=== PATIENT | female | born 1935 | race African-American/Black ===

== ENCOUNTER 2017-06-14 13:14 | Outpatient (CLI) | payer MEDICARE ==
--- NOTE | 2017-06-14 17:08 | CT ---
CT LUMBAR SPINE WITHOUT IV CONTRAST 06/14/17 HISTORY: Lumbar radiculopathy. Patient complains of thigh pain greater on the right with associated low back p ain. TECHNIQUE: Contiguous axial CT images are obtained through the lumbar spine from the T12-L1 level to the upper s acrum. Sagittal and coronal reformat images are provided. COMPARISON: None available. FINDINGS: Dense vascular calcifications are seen in the abdominal aorta and involving the iliac arteries. Stents are seen within the bilateral common iliac arteries. There are hypodense lesions seen in the k idneys bilaterally which were also seen on a prior CTA exam of the abdomen on 12/12/16 and most likely related to cysts with a few subcentimeter too small to characterize hypodense lesions in each kidney . [employer] images demonstrate a dual lead left subclavian cardiac pacemaking device in place with what esther ears to be osteonecrosis involving the bilateral femoral heads. No fracture is seen involving the lum bar spine and the vertebral body heights are within normal limits. There is slight grade I anterolist hesis of L4 on L5. L1-2 level: There is mild broad based disc osteophyte complex resulting in slight effacement of the t hecal sac anteriorly. Neural foramina appear patent. L2-3 level: There is minimal vacuum phenomenon centered in intervertebral disc with loss of intervert ebral disc height. There is a broad based disc osteophyte complex with facet hypertrophic changes and ligamentous thickening. There is moderate to severe narrowing of the central spinal canal with moder ate bilateral neural foraminal narrowing, greater on the right. L3-4 level: There is severe loss of intervertebral disc height with vacuum phenomenon centered in int ervertebral disc. Prominent end plate degenerative changes are present at this level. There is a broa d based disc osteophyte complex. Facet hypertrophic changes and ligamentous thickening are present. T he findings result in severe narrowing of the central spinal canal as well as narrowing of the latera l recesses. There is severe right and moderate to severe left sided neural foraminal narrowing. L4-5 level: As noted above, there is grade I anterolisthesis of L4 on L5. There is vacuum phenomenon in the intervertebral disc with loss of intervertebral disc height. Mild end plate degenerative hope es are present. There is broad based disc osteophyte complex. Facet hypertrophic changes with ligamen tous thickening are present. The findings result in severe narrowing of the central canal with narrow ing of the lateral recesses. There is severe bilateral neural foraminal narrowing, much greater on th e right with disc material extending into the inferior aspect of the right neural foramen. L5-S1 level: There is a broad based disc osteophyte complex. This does encroach on the exiting bilate ral traversing S1 nerve roots as the nerve roots exit the thecal sac. There are mild facet degenerati ve changes present. There is mild right and mild to moderate left sided neural foraminal narrowing. IMPRESSION: 1. Multilevel degenerative changes with varying degrees of moderate and severe degrees of neural foraminal narrowing as well as severe narrowing of the central spinal canal at the L3-4 level. 2. Grade I anterolisthesis of L4 on L5 related to prominent facet degenerative changes. 3. Dense vascular calcifications. 4. Bilateral renal lesions, likely related to cysts. POS: [facility]
== END 2017-06-14 13:15 | disposition home or self-care (01) ==
LOC: CT 13:14
PROVIDERS: ATTEND Nurse Practitioner Family
DX: M51.16 Intervertebral disc disorders with radiculopathy, lumbar region (principal); M47.26 Other spondylosis with radiculopathy, lumbar region; M43.16 Spondylolisthesis, lumbar region; N28.9 Disorder of kidney and ureter, unspecified; I70.90 Unspecified atherosclerosis
CPT/HCPCS: 72131

== ENCOUNTER 2017-08-02 08:00 | Day surgery (SDC) | payer MEDICARE ==
[2017-08-01 11:10] VITALS: BMI 21.4
[~2017-08-02 08:00] MED LIST: FLU VACC TS2017-18 (>65YR) 0.5 ML SYRINGE IM ONE
[2017-08-02 09:38] VITALS: BP 146/60; TEMP 97.2
--- NOTE | 2017-08-02 10:29 | RAD ---
LUMBAR SPINE TWO VIEWS: History: Back pain. Comparison: 01-21-17 FINDINGS: Lateral flexion and extension views are included. Vertebral body heights are maintained. Disc space n arrowing is most pronounced at the L2-3 and L3-4 levels. Discogenic endplate changes and osteophytosi s are most pronounced at the L3-4 level. On the neutral view, there is 4 mm spondylolisthesis at the L3-4 level and 5 mm spondylolisthesis at the L4-5 level. No abnormal translational motion is evident upon flexion or extension. Calcification is present within the arterial structures with stents overlying the common iliac arteri es. IMPRESSION: 1. Prominent lumbar spondylosis. 2. Atherosclerosis. POS: [facility]
--- NOTE | 2017-08-02 11:35 | RAD ---
LUMBAR SPINE MYELOGRAM INDICATION: Lumbar radiculopathy. PROCEDURE: After informed consent had been obtained, the patient was escorted to the interventional suite and pl aced on the procedural table. Nurse Aide imaging was performed. The patient was placed into a prone posi tion. Skin on the low back was then prepped and draped in the standard sterile fashion and topical a nd regional soft tissue anesthesia was achieved with 1% lidocaine and sodium bicarbonate. L3 right interlaminar approach was selected, and a 22 gauge needle was uneventfully advanced into the thecal s ac with clear color CSF. Subsequently, 8 cc Isovue M200 was instilled into the thecal sac under real time fluoroscopy. Appropriate opacification of thecal sac demonstrated with imaging stored for [facility] irwition. The needle was then removed from the patient. The patient tolerated the procedure well an d was then transferred to CT to undergo subsequent myelogram. Reference separate report for full det ails. Radiation Exposure Data: Intermittent fluoroscopy: less than 10 seconds. IMPRESSION: Technically successful lumbar myelogram as detailed above. POS: [facility]
[2017-08-02] MEDS ORDERED: Iopamidol-M 200 41% 20 ML VIAL ONE (16:53)
--- NOTE | 2017-08-05 07:22 | CT ---
LUMBAR SPINE MYELOGRAM: CT LUMBAR SPINE WITH CONTRAST: CLINICAL HISTORY: Spinal stenosis of the lumbar region. Lumbar radiculopathy. COMPARISON: Reference made to 06/14/2017 exam. FINDINGS: Redemonstration of prominent endplate degenerative change with associated osteophytosis, disk space n arrowing, gas vacuum phenomenon, and prominent endplate sclerosis of L3-L4, similar in appearance to prior exam. There is no compression deformity. Trace L4-L5 level spondylolisthesis is stable. Ther e is minimal retrolisthesis of L2 on L3. There is multilevel mild to moderate bilateral facet degene rative hypertrophy throughout the lumbar spine. Multilevel gas vacuum phenomenon is present. The co nus medullaris is normal in morphology and terminates at the L1 level. L5-S1: There is no high grade central canal stenosis. Mild bilateral neural foraminal stenosis is p resent, as a result of broad-based disk bulge and facet hypertrophy. L4-L5: Moderate central canal stenosis due to a broad-based disk osteophyte complex. There is sever e right and moderate left neural foraminal stenosis. L3-L4: Moderate central canal stenosis as a result of a broad-based disk osteophyte. there is moder ate right and moderate to severe left neural foraminal stenosis, as the result of a left asymmetric b road-based disk osteophyte complex. L2-L3: There is moderate central canal stenosis, as the result of a broad-based disk osteophyte with moderate left and mild to moderate right neural foraminal narrowing. L1-L2: Mild narrowing of the central canal due to a broad-based disk bulge. There is mild narrowing of the left neural foramen. No high grade right foraminal stenosis. Extensive vascular disease is present. There is redemonstration of a left renal cyst. Multiple gran ulomatous calcifications of the spleen are present. Small right renal hypodensity is predominantly o bscured by motion. IMPRESSION: Prominent multilevel degenerative change throughout the lumbar spine, as delineated above, with resul tant moderate to severe areas of multilevel central canal and foraminal compromise, as discussed abov e. POS: [facility]
== END 2017-08-02 11:55 | disposition home or self-care (01) ==
LOC: RAD 08:00
PROVIDERS: ATTEND Neurological Surgery
PROC: B00B1ZZ Plain Radiography of Spinal Cord using Low Osmolar Contrast (ICD-10-PCS; principal; 2017-08-02)
DX: M48.062 Spinal stenosis, lumbar region with neurogenic claudication (principal); I10 Essential (primary) hypertension; E78.5 Hyperlipidemia, unspecified; E11.51 Type 2 diabetes mellitus with diabetic peripheral angiopathy without gangrene; Z79.84 Long term (current) use of oral hypoglycemic drugs; Z79.82 Long term (current) use of aspirin; Z79.899 Other long term (current) drug therapy; Z88.6 Allergy status to analgesic agent; Z88.5 Allergy status to narcotic agent; Z88.8 Allergy status to other drugs, medicaments and biological substances; Z98.42 Cataract extraction status, left eye; Z98.41 Cataract extraction status, right eye; Z95.0 Presence of cardiac pacemaker; Z95.1 Presence of aortocoronary bypass graft; Z90.710 Acquired absence of both cervix and uterus; Z90.49 Acquired absence of other specified parts of digestive tract; Z90.79 Acquired absence of other genital organ(s); Z90.722 Acquired absence of ovaries, bilateral; Z98.890 Other specified postprocedural states
CPT/HCPCS: 62304; 72100; 72132

== ENCOUNTER 2017-08-09 08:35 | Outpatient (CLI) | payer MEDICARE ==
--- NOTE | 2017-08-09 10:34 | CT ---
CT OF THE ABDOMEN AND PELVIS WITH IV CONTRAST: INDICATIONS: An 82-year-old female with black stools and anemia with a change in bowel habits. The patient has a history of a hysterectomy, an appendectomy, and left leg endovascular stent placement. COMPARISON: CT of the abdomen and pelvis with bilateral lower extremity run-off dated 12/12/2016. FINDINGS: ABDOMEN: There is emphysematous change overlying both lung bases. There is subsegmental volume loss within the right middle lobe and both lower lobes. There are calcified lymph nodes within the right infrahilar region. There is a small hiatal hernia. There are numerous granuloma within the spleen. There are areas of focal fatty infiltration seen adjacent to the falciform ligament that is stable to the prior exam. The pancreas and adrenal glands are normal appearing. Bilateral renal cysts are stable. The largest cyst, seen within the posterior right mid kidney, measures 2 cm. The largest in the left kidney selene sures 2.9 cm and is stable to the prior exam. No hydronephrosis is grossly evident. No enlarged lym ph node or free fluid is evident. PELVIS: The appendix is surgically absent. The uterus is surgically absent. The bladder is within normal limits. The colon is not fully distended. No definite apparent wall thickening or pericoloni c inflammatory stranding is evident. The small bowel is of normal caliber. No free fluid is evident . There is an endovascular stent present within the left common iliac artery. This is stable to the prior CTA evaluation of the abdomen and pelvis with bilateral lower extremity run-off. There is bilateral osteonecrosis of the femoral head, which is stable to the prior exam. A small are a of subchondral collapse involving the superior aspect of the right femoral head is stable. Degener ative levoscoliosis is again seen involving the lumbar spine. There is scattered degenerative and os teoarthritic change. IMPRESSION: 1. No acute CT abnormality seen within the abdomen or pelvis. 2. Small hiatal hernia. 3. Focal fatty infiltration of the falciform ligament is stable to the prior exam. 4. Findings of prior granulomatous disease. 5. Stable bilateral renal cysts. 6. Stable osteonecrosis of both femoral heads. POS: [facility]
[2017-08-09] MEDS ORDERED: Iopamidol 370 76% 100 ML VIAL ONE (14:11)
== END 2017-08-09 08:36 | disposition home or self-care (01) ==
LOC: CT 08:35
PROVIDERS: ATTEND Internal Medicine Gastroenterology
DX: R19.4 Change in bowel habit (principal); R93.8 Abnormal findings on diagnostic imaging of other specified body structures; D64.9 Anemia, unspecified; K44.9 Diaphragmatic hernia without obstruction or gangrene; K76.0 Fatty (change of) liver, not elsewhere classified; N28.1 Cyst of kidney, acquired; M87.852 Other osteonecrosis, left femur; M87.851 Other osteonecrosis, right femur; D71 Functional disorders of polymorphonuclear neutrophils
CPT/HCPCS: 74177

== ENCOUNTER 2017-09-24 13:08 | Outpatient (CLI) | payer MEDICARE ==
--- NOTE | 2017-09-24 13:31 | RAD ---
PA AND LATERAL CHEST: History: High blood sugar. Fall. Headache. Chest pain. FINDINGS/IMPRESSION: Comparison is made with exam of 03-21-17. The heart size is prominent. The aorta is tortuous. Left sided pacing device remains in place. Lungs are well expanded. There is mild prominence of the pulmonary vascularity. No lobar consolidation, pne umothoraces or pleural effusions are seen. There is scoliosis of the spine. POS: [facility]
== END 2017-09-24 13:09 | disposition home or self-care (01) ==
LOC: RAD-FRANK 13:08
PROVIDERS: ATTEND Nurse Practitioner Family
DX: Z01.818 Encounter for other preprocedural examination (principal); I25.5 Ischemic cardiomyopathy; Z95.810 Presence of automatic (implantable) cardiac defibrillator; M41.9 Scoliosis, unspecified
CPT/HCPCS: 71046

== ENCOUNTER 2018-01-20 11:15 | Inpatient (IN) | payer MEDICARE ==
--- NOTE | 2018-01-23 14:43 | HP ---
CHIEF COMPLAINT: Lumbar and leg pain. HISTORY OF PRESENT ILLNESS: Ms. Gonzalez is an 83-year-old female who presents with low back pain and pain in the right greater than left thigh. She has symptoms of neurogenic claudication and can only walk about 100 feet before having to sit down. She is standing and walking makes the pain worse in the legs. She has had several injections in the lumbar spine including the left lumbar TFESI and an THADDEUS, which did not seem to help much. The pain is made some better with analgesics. She has not had any physical therapy for the low back. She has an extensive heart history including open heart surgery and several stents placed. She also has a pacemaker. The patient continues to be limited by her leg pain that worsens with standing and causes her to lean forward onto shopping cart or over the counters. REVIEW OF SYSTEMS: A 10-point review of systems has been addressed and negative except for what is in HPI above. PAST MEDICAL HISTORY: Venous thrombosis embolism, hypertension, osteopenia, postmenopausal, de Quervain's tenosynovitis, peripheral vascular disease, hyperlipidemia, diabetes type 2, tobacco use, hemorrhoids, diabetic kidney disease stage 3, CABG, AICD, coronary artery calcification, cardiomyopathy, interventional cardiac history including iliofemoral angiography with right common femoral endarterectomy in 2009, pacemaker placement in 2007, stents in iliac artery, cataract surgery, right carotid endarterectomy, cardiomyopathy with ejection fraction of 40%-45% in 2011, which improved to 50%-55% after CABG. PAST SURGICAL HISTORY: Appendectomy, hysterectomy, colonoscopy, neck surgery, heart surgery, hemorrhoidectomy, left carotid surgery in 05/26, pacemaker in 2007, CABG by Dr. Ivey, left common femoral endarterectomy in 2016. FAMILY HISTORY: Father is at 80 from cancer. Mother is from a heart attack in her late 70s. Siblings, there were three sisters who have already. Patient has 1 healthy daughter. SOCIAL HISTORY: The patient quit drinking alcohol 15 years ago. MEDICATIONS: Colace, Align, allopurinol, ferrous sulfate, CoQ10, fish oil, aspirin, hydralazine, carvedilol, furosemide, benazepril, Zoloft, duloxetine, metformin. ALLERGIES: MOTRIN. PHYSICAL EXAMINATION: HEENT: Normocephalic, atraumatic. Hearing is intact. Vision is intact. Moist mucous membranes. Trachea is midline. No masses are noted. Eyes: Pupils are equal, round, and reactive to light. Extraocular movements are intact. Sclerae is not injected, nonicteric. PSYCHIATRIC: Normal mood and affect. PULMONARY: Normal work of breathing on room air. CARDIOVASCULAR: No cyanosis or clubbing. Regular rate and rhythm. MUSCULOSKELETAL: Lower extremities, there is normal strength in the iliopsoas, quadriceps, hamstrings, anterior tibialis, extensor hallucis longus, gastroc and toe flexor. Sensory exam, some mild length dependent loss of foot sensation , tender to palpation on the midline lumbar spine. NEUROLOGIC: The patient is awake, alert, oriented to person, place and thing. Cranial nerves II through XII are grossly intact. Speech is fluent. Answers questions appropriately. Walks with a cane. Analgesic gait and station. ASSESSMENT: Spondylolisthesis in the lumbar region, stenosis lumbar with neurogenic claudication. PLAN: Dr. Triana has offered surgery, lumbar laminectomy L2-L5 with TLIF at L3-L4 and L4-L5. We have discussed the indications, risks, benefits, alternatives, and expected results from surgery. The risks are discussed and included, but were not limited to bleeding, infection, CSF leak, nerve damage, weakness, incontinence of cauda equina injury, arachnoiditis, paralysis, ventilator dependence, wheelchair dependence, loss of vision, hardware malplacement, cardiopulmonary complications of anesthesia and . The long- term complications discussed and include but are not limited to of surrounding disks and need for future surgery. The patient states she understands the risks and is willing to proceed. KRISTEN
[2018-01-24] MEDS ORDERED: Thrombin 5000 UNITS/5 ML VIAL ONE ×2 (06:17→11:54)
[2018-01-24] MEDS ORDERED: Sodium Chloride 0.9% 20 ML ONE (06:17)
[2018-01-24] MEDS ORDERED: Bupivacaine HCl 0.5%/Epinephrine 1:200,000/PF 30 ml Vial ONE (06:17)
[2018-01-24] MEDS ORDERED: CEFAZOLIN/Water 2 GM/20 ML SYRINGE ONE (06:43)
[2018-01-24] MEDS ORDERED: Albumin 5% 500 ML ONE (06:51)
[2018-01-24] MEDS ORDERED: Phenylephrine HCL 10 MG/ML VIAL ONE (06:51)
[2018-01-24] MEDS ORDERED: Fentanyl 100 MCG/2 ML VIAL ONE ×6 (07:08→18:35)
[2018-01-24] MEDS ORDERED: PHENYLEPHRINE-NS 100 MCG/ML 10 ML SYRINGE ONE ×2 (07:35→13:49)
[2018-01-24] MEDS ORDERED: Nitroglycerin 2% Ointment 1 INCH/1 GM Packet ONE (10:14)
[2018-01-24] MEDS ORDERED: PROPOFOL 200 MG/20 ML VIAL ONE (13:49)
[2018-01-24] MEDS ORDERED: Lidocaine 1% PF 5 ML VIAL ONE (13:49)
[2018-01-24] MEDS ORDERED: diphenhydrAMINE 50 MG/ML VIAL IVP PRN (15:25)
[2018-01-24] MEDS ORDERED: Promethazine HCl 25 MG/ML VIAL IM PRN ×2 (15:25→18:41)
[2018-01-24] MEDS ORDERED: Bisacodyl 10 MG SUPP PR PRN (15:25)
[2018-01-24] MEDS ORDERED: Acetaminophen/Codeine 30-300mg Tablet PO PRN (15:25)
[2018-01-24] MEDS ORDERED: Mag-Al 1200 mg/1200 mg/30 ML UDCUP PO PRN (15:25)
[2018-01-24] MEDS ORDERED: Promethazine 25 MG TAB PO PRN (15:25)
[2018-01-24] MEDS ORDERED: Labetalol HCl 100 MG/20 ML VIAL ONE (15:30)
[2018-01-24 16:02] LABS: Actual Bicarbonate (HCO3a) 24.9 mEq/L (22-28); O2 Tension (PaO2) 95.1 mmHg (> 60.0); pH, Arterial 7.29 (7.35-7.45)
[2018-01-24 16:03] LABS: Analyzer IN Cardio OR; Calcium, Ionized 1.2 mmol/L (1.12-1.30); Hemoglobin (Hb) 9.8 g/dL (12.0-16.0); Puncture Site A-LINE
[2018-01-24] MEDS ORDERED: hydrALAZINE 20 MG/ML VIAL ONE (16:10)
[2018-01-24] MEDS: Sodium Chloride 0.9% 1,000 ML IV SCH (17:28)
[2018-01-24 17:48] LABS: CO2 Tension 41.6 mmHg (35.0-45.0); pH, Arterial 7.35 (7.35-7.45)
[2018-01-24 17:49] LABS: Actual Bicarbonate (HCO3a) 22.6 mEq/L (22-28); Base Excess (BEa) -2.8 mEq/L (-2.0 to +3.0); Hemoglobin (Hb) 11.2 g/dL (12.0-16.0); O2 Tension (PaO2) 57.1 mmHg (> 60.0)
[2018-01-24 17:50] LABS: Analyzer IN Cardio OR; Calcium, Ionized 1.1 mmol/L (1.12-1.30); Puncture Site A-LINE
[2018-01-24] MEDS ORDERED: Ondansetron HCl/PF 4 MG/2 ML Vial IVP PRN (18:41)
[2018-01-24] MEDS ORDERED: Promethazine HCl 25 MG/ML VIAL SLOW IVP PRN (18:41)
[2018-01-24] MEDS: tiZANidine HCl 4 MG TAB PO PRN (20:49)
[2018-01-24] MEDS: Carvedilol 25 MG TAB PO SCH (20:49)
[2018-01-24] MEDS: Gabapentin 300 MG CAP PO SCH (20:49)
[2018-01-24] MEDS: hydrALAZINE 25 MG TAB PO SCH (20:49)
[2018-01-24] MEDS: metFORMIN 500 MG TAB PO SCH (20:51)
[2018-01-24] MEDS: Atorvastatin Calcium 20 MG TAB PO SCH (20:51)
[2018-01-24] MEDS: DULoxetine 30 MG CAP PO SCH (20:51)
--- NOTE | 2018-01-24 21:02 | OP ---
DATE OF SURGERY: 01/24/2018 SURGEON: Wellington Triana M.D. [employer] INSPECTOR: Abby Sullivan PA-C. PREOPERATIVE INDICATION: Treat pain, prevent neurological deterioration. PREOPERATIVE DIAGNOSES: Multilevel lumbar stenosis, unstable lumbar spondylolisthesis x2 levels. POSTOPERATIVE DIAGNOSIS: Multilevel lumbar stenosis, unstable lumbar spondylolisthesis x2 levels. OPERATIVE PROCEDURES: Decompressive laminectomy, medial facetectomy, foraminotomy L2-L3, L3-L4, L4-L 5, transforaminal lumbar interbody arthrodesis L3-L4, L4-L5, placement of intervertebral biomechanica l device L3-L4, L4-L5, local morselized autograft and morselized Allograft, pedicle screw and laure ins trumentation L3-L4 and L4-L5, posterolateral arthrodesis L3-L4, L4-L5, operating microscope. PREOPERATIVE MEDICATION: Ancef 2 g IV. DRAIN NUMBER: Zero. DRAIN TYPE: None. OPERATIVE DICTATION: The patient was brought to the operating room. General endotracheal anesthesia was induced. The patient was positioned prone on the Santhosh frame with the appropriate padding for the chest and hips. A lateral fluoro radiograph was used to plan our incision. The lumbar skin was sterilely prepped and draped. We opened with a 10 blade knife and controlled bleeding with bipolar and monopolar cautery. We used monopolar cautery to dissect through subcutaneous tissues to the thor acodorsal fascia. We incised the fascia in the midline and we reflected the paraspinal muscles off t he spinous process and lamina of L2, L3, L4, and L5. Self-retaining retractors were placed and a lat eral fluoro radiograph was used to confirm the levels upon which we were operating. We then carried our dissection over the facet joints to expose the transverse process of L3, L4, and L5. We used an Adson rongeur, we removed the spinous processes from L2 to the superior portion of L5. We fashioned laminectomy down the midline. We widened the laminectomy defect with Kerrison rongeurs, we performed medial facetectomies and foraminotomies over the exiting nerve roots at L2-L3, L3-L4, and L4-L5 and removed the superior half of L5 lamina and perform foraminotomies of the L5 nerve root. During our d ecompression at the L3 level, there is a tiny durotomy in the midline posteriorly under a bone spur a nd another small one laterally. The operative microscope was brought in the field. Under microscopic magnification and using microsurgical techniques, we closed the dura in a primary f ashion. Over both openings we sewed down a pledget of muscle to buttress closure. With our decompre ssion secure and the dura reclosed and the dura tightly closed, we turned our attention to arthrodesi s. The right-sided L3-L4 and L4-L5 facet joints were removed. We accessed the intervertebral space thro ugh the foramen at L3-L4 and L4-L5, incised the disk space and removed disk contents using curettes a nd rongeurs. Angled curets were used to scrape the endplates. We used a rectangular shaped bone andres p to prepare the endplates for grafting and to measure the height of the interspace. Both interspace s measured 9 mm. A 9 mm PEEK intervertebral graft was brought in the field. Laminectomy bone was ca refully morcellized on the back table and the morselized bone was added to demineralized bone matrix as our fusion substrate. This was done after all soft tissue was removed from it. The fusion substr ate was packed into the PEEK graft and the grafts were advanced into the respective interspaces under radiographic guidance to the appropriate depth. We turned our attention to pedicle screw instrument ation. Using bony anatomic landmarks, palpation of the medial portion of the pedicles, and a lateral fluoro radiograph as a guide, we chose entry points for the pedicle screws at L3, L4, and L5. We drilled ou r entry points and used a bone awl to create our trajectories. We tapped the trajectories and probed them. We found each completely encased the bone. We placed 6.5 mm diameter screws through the pedi cles at L3, L4 and L5 into the vertebral bodies. A 360-degree image set was generated with our isoce ntric C-arm confirming an adequate positioning of our pedicle screw instrumentation. We irrigated co piously with bacitracin irrigation. We decorticated the transverse processes of L3, L4, and L5 bilat erally and over this decorticated bone, we left demineralized bone matrix and morselized autograft as our posterolateral fusion substrate. We then brought rods into the heads of the screws, we used gen tle compression across each of the interspaces to keep our interbody grafts in place. We tightened c aps down over the rods and using a [id number] mechanism, we ensured adequate tightness. W chi reinspected our dural closure, 1 more marker suture was placed on the microscope and there was exce llent control of CSF egress. We irrigated copiously with bacitracin irrigation. We reinforced our d ural closure with DuraSeal tissue sealant and we treated the wound with vancomycin powder. We closed the wound in anatomic layers and we applied a sterile dressing. This was a clean case and no contam ination.
[2018-01-25] MEDS: Acetaminophen/Codeine 30-300mg Tablet PO PRN ×3 (02:10→14:27)
[2018-01-25] MEDS: Sodium Chloride 0.9% 1,000 ML IV SCH ×2 (04:38→17:26)
[2018-01-25] MEDS: hydrALAZINE 25 MG TAB PO SCH ×3 (08:58→21:38)
[2018-01-25] MEDS: Carvedilol 25 MG TAB PO SCH ×2 (08:59→21:38)
[2018-01-25] MEDS ORDERED: Bifidobacterium Infantis [Align] 4 MG PO SCH (09:00)
[2018-01-25] MEDS: Allopurinol 300 MG TAB PO SCH (09:01)
[2018-01-25] MEDS: DULoxetine 30 MG CAP PO SCH ×2 (09:02→21:38)
[2018-01-25] MEDS: Cyanocobalamin (Vitamin B-12) 1,000 MCG TAB PO SCH (09:02)
[2018-01-25] MEDS: Ferrous Sulfate 325 MG TAB PO SCH (09:02)
[2018-01-25] MEDS: Fish Oil 1,000 MG CAP PO SCH ×2 (09:02→21:38)
[2018-01-25] MEDS: Folic Acid 1 MG TAB PO SCH (09:02)
[2018-01-25] MEDS: metFORMIN 500 MG TAB PO SCH ×2 (09:02→21:39)
[2018-01-25] MEDS: Furosemide 20 MG TAB PO SCH (09:02)
[2018-01-25] MEDS: Loratadine 10 MG TAB PO SCH (09:02)
[2018-01-25] MEDS: Ubidecarenone 50 MG CAP PO SCH (09:03)
--- NOTE | 2018-01-25 10:51 | PRG ---
DATE OF SERVICE: 01/25/2018 Ms. Gonzalez is now postop day 1 following multilevel TLIF with Dr. Triana yesterday. She had 2 incid ental durotomies that were repaired, and for that purpose, she was kept flat overnight. She, at this point, is able to tolerate sitting upright, although has discomfort in her back. Until this point, she has refused pain medications, and unfortunately, lost IV access and has refused for placement of said IV. Discussed this with her this morning and she still would not like to pursue that. She does have a Husain in and we will go ahead and remove that it has caused her great discomfort. She has so me complaints stating that we do not want her to eat, although she is free to eat any diet that she c hooses and discussed this with her at bedside. Also, helped to get breakfast ordered for the morning . Her incision sites are well approximated. No drainage or dehiscence. She does have significant b ack and hip pain, which one would expect with her specific surgery, and particularly that she has ref used pain medications to date. We will re-discuss this with her, and nurse will bring pain medicatio n for her after our discussion. She will need to ambulate today out of the bed, preferably 3 times a day. I will make sure that this is in her orders. She is pending rehab evaluation and likely will go next week sometime.
[2018-01-25] MEDS: Gabapentin 300 MG CAP PO SCH (21:38)
[2018-01-25] MEDS: Atorvastatin Calcium 20 MG TAB PO SCH (21:38)
[2018-01-26] MEDS: tiZANidine HCl 4 MG TAB PO PRN (04:49)
[2018-01-26] MEDS: Acetaminophen 325 MG TAB PO PRN (09:38)
[2018-01-26] MEDS: Allopurinol 300 MG TAB PO SCH (09:39)
[2018-01-26] MEDS: Ubidecarenone 50 MG CAP PO SCH (09:39)
[2018-01-26] MEDS: metFORMIN 500 MG TAB PO SCH ×2 (09:40→21:50)
[2018-01-26] MEDS: Loratadine 10 MG TAB PO SCH (09:45)
[2018-01-26] MEDS: DULoxetine 30 MG CAP PO SCH ×2 (09:46→21:50)
[2018-01-26] MEDS: Folic Acid 1 MG TAB PO SCH (09:46)
[2018-01-26] MEDS: Fish Oil 1,000 MG CAP PO SCH ×2 (09:46→21:50)
[2018-01-26] MEDS: Ferrous Sulfate 325 MG TAB PO SCH (09:46)
[2018-01-26] MEDS: Cyanocobalamin (Vitamin B-12) 1,000 MCG TAB PO SCH (09:46)
[2018-01-26 10:57] LABS: #Eosinphils 0.1 thou/uL (0.0-0.7); #Lymphocytes 2.2 thou/uL (1.20-3.40); #Monocytes 0.9 thou/uL (0.11-0.59); #Neutrophils 10.9 thou/uL (1.40-6.50); %Basophils 0.3 % (0.0-1.0); %Eosinophils 0.5 % (0.0-10.0); %Lymphocytes 15.5 % (21.0-51.0); %Monocytes 6.6 % (0.0-10.0); %Neutrophils 77.1 % (42.0-75.0); Hemoglobin 8.9 g/dL (12.0-16.0); Mean Corpuscular HGB CONC 34.2 g/dL (32.0-36.0); Mean Corpuscular Hemoglobin 32.9 pg (27.0-31.0); Mean Corpuscular Volume 96.1 fL (78.0-98.0); Mean Platelet Volume 8.9 fL (7.4-10.4); PLT Morphology Comment Appears Decreased; Platelet Count 75 thou/uL (130-400); RBC Distribution Width 14.9 % (11.5-14.5); Red Blood Cell (RBC) Count 2.71 mill/uL (4.20-5.40); White Blood Cell (WBC) Count 14.2 thou/uL (4.8-10.8)
[2018-01-26 11:02] LABS: Anion Gap 14 mmol/L (10-20); BUN (Urea Nitrogen) 16 mg/dL (9.8-20.1); Calc. Creatinine Clearance 35 mL/min (70-130); Calcium 8.6 mg/dL (7.8-10.44); Carbon Dioxide 21 mmol/L (23-31); Chloride 104 mmol/L (98-107); Estimated GFR-MDRD 63; Glucose 204 mg/dL (83-110); Potassium 3.6 mmol/L (3.5-5.1); Sodium 135 mmol/L (136-145)
--- NOTE | 2018-01-26 11:17 | PRG ---
DATE OF SERVICE: 01/26/2018 SUBJECTIVE: Ms. Gonzalez is 2 days status post revision lumbar surgery with posterolateral instrumented fusion and TLIF. She has been slowly mobilizing and continues to report the expected postoperative s urgical pain. We will continue to have her work with physical therapy and occupational therapy. We will work towards disposition to rehabilitation likely to take place at the beginning part of this ne xt week.
[2018-01-26] MEDS: Sodium Chloride 0.9% 1,000 ML IV SCH (20:19)
[2018-01-26] MEDS: Furosemide 20 MG TAB PO SCH (20:20)
[2018-01-26] MEDS: hydrALAZINE 25 MG TAB PO SCH ×2 (20:20→21:50)
[2018-01-26] MEDS: Carvedilol 25 MG TAB PO SCH ×2 (20:20→21:50)
[2018-01-26] MEDS: Atorvastatin Calcium 20 MG TAB PO SCH (21:49)
[2018-01-26] MEDS: Gabapentin 300 MG CAP PO SCH (21:50)
[2018-01-26] MEDS ORDERED: Dextrose 5% in Water 1,000 ML IV PRN (21:55)
[2018-01-26] MEDS ORDERED: Dextrose 50% Abboject 50 ML SYRINGE IVP PRN (21:55)
[2018-01-27] MEDS: Sodium Chloride 0.9% 1,000 ML IV SCH ×3 (00:09→22:49)
--- NOTE | 2018-01-27 06:52 | PRG ---
DATE OF SERVICE: 01/27/2018 I saw Ms. Riddhi Gonzalez in her hospital room this morning. She is 2 days out from decompression fusion lumbar spine for stenosis and unstable spondylolisthesis. Over the weekend she has done relatively w ell. Her spirits were not great and she did not mobilize as quickly as we would like, but this morni ng she is feeling better. She says she has some soreness around the site of the surgery. She has no radiating nerve pain to her legs or feet. Her vitals show a T-max of 98.7, pulse is a little bit up at 102, however, it has been in the 80s most of the weekend. Blood pressure is 140s to 150s and she is satting 100% this morning, although it has been in the low 90s previously. I do not find any new neurological deficit. The bandage is tinged with some serosanguineous drainage. It is well approxi mated to the skin. We will have Ms. Gonzalez mobilize with physical therapy today. If they feel she is a good candidate for inpatient rehabilitation she can be transferred over. She should wear her brace when she is sitting or standing. We encouraged her to walk and she indicates she will make an effor t to do so today.
[2018-01-27] MEDS: Furosemide 20 MG TAB PO SCH (09:37)
[2018-01-27] MEDS: Loratadine 10 MG TAB PO SCH (09:37)
[2018-01-27] MEDS: Allopurinol 300 MG TAB PO SCH (09:37)
[2018-01-27] MEDS: metFORMIN 500 MG TAB PO SCH ×2 (09:37→22:49)
[2018-01-27] MEDS: Fish Oil 1,000 MG CAP PO SCH ×2 (09:37→22:48)
[2018-01-27] MEDS: Carvedilol 25 MG TAB PO SCH ×2 (09:38→21:36)
[2018-01-27] MEDS: hydrALAZINE 25 MG TAB PO SCH ×3 (09:38→22:48)
[2018-01-27] MEDS: Ubidecarenone 50 MG CAP PO SCH (09:38)
[2018-01-27] MEDS: DULoxetine 30 MG CAP PO SCH ×2 (09:38→21:36)
[2018-01-27] MEDS: Folic Acid 1 MG TAB PO SCH (09:38)
[2018-01-27] MEDS: Ferrous Sulfate 325 MG TAB PO SCH (09:39)
[2018-01-27] MEDS: Cyanocobalamin (Vitamin B-12) 1,000 MCG TAB PO SCH (09:39)
[2018-01-27 14:40] LABS: Bilirubin Negative (Negative); Blood, Urine Trace (Negative); Clarity CLEAR (Clear); Glucose, Urine (Dipstick) Negative (Negative); Leukocyte Small (Negative); Nitrite Negative (Negative); Protein, Urine (Dipstick) 300 mg/dL (Neg-Trace); Specific Gravity, Urine 1.022 (1.002-1.036); Urobilinogen 0.2 mg/dL (0.2-1.0)
[2018-01-27 14:44] LABS: Bacteria/HPF None Seen HPF (None Seen); Hyaline Casts/LPF 0-3 HYALINE CAST LPF (0-3 Hyaline); Pathc Cast-AUWi Flag 1.01 (0-2.49); Squamous Epithelial 0-3 HPF (0-3); WBC/HPF 0-3 HPF (0-3)
[2018-01-27 14:47] LABS: Yeast-AUWi Flag 30.5 (0-25.0)
[2018-01-27 15:03] LABS: RBC/HPF 0-3 HPF (0-3)
[2018-01-27] MEDS: Acetaminophen 325 MG TAB PO PRN (17:45)
[2018-01-27] MEDS: HumaLOG 300 UNITS/3 ML VIAL SC PRN ×2 (18:00→21:47)
[2018-01-27] MEDS: Atorvastatin Calcium 20 MG TAB PO SCH (22:48)
[2018-01-27] MEDS: Gabapentin 300 MG CAP PO SCH (22:48)
[2018-01-28] MEDS: HumaLOG 300 UNITS/3 ML VIAL SC PRN (06:21)
--- NOTE | 2018-01-28 07:16 | PRG ---
DATE OF SERVICE: 01/28/2018 Ms. Gonzalez is 4 days out from lumbar decompression fusion. She is slowly mobilizing with the assistanc e of Physical Therapy. She does not recall when therapy came yesterday, but she does recall them com ing on Saturday. She does say that she got out of bed yesterday and walked with her walker. Incision continues to drain a bit from one end. The drainage is minimal, but it is present. Steri-Strips are saturated. Ms. Gonzalez's vitals have remained stable overnight and [facility] a [facility] for [facility] there. We will continue oral antibio tics for the next 5 days at least due to the incisional drainage.
[2018-01-28] MEDS: Cyanocobalamin (Vitamin B-12) 1,000 MCG TAB PO SCH (09:12)
[2018-01-28] MEDS: Carvedilol 25 MG TAB PO SCH ×2 (09:12→21:10)
[2018-01-28] MEDS: Allopurinol 300 MG TAB PO SCH (09:12)
[2018-01-28] MEDS: Folic Acid 1 MG TAB PO SCH (09:13)
[2018-01-28] MEDS: hydrALAZINE 25 MG TAB PO SCH ×3 (09:13→21:10)
[2018-01-28] MEDS: Fish Oil 1,000 MG CAP PO SCH ×2 (09:13→21:08)
[2018-01-28] MEDS: DULoxetine 30 MG CAP PO SCH ×2 (09:13→21:08)
[2018-01-28] MEDS: Ferrous Sulfate 325 MG TAB PO SCH (09:13)
[2018-01-28] MEDS: Furosemide 20 MG TAB PO SCH (09:13)
[2018-01-28] MEDS: metFORMIN 500 MG TAB PO SCH ×2 (09:14→21:08)
[2018-01-28] MEDS: Loratadine 10 MG TAB PO SCH (09:14)
[2018-01-28] MEDS: Ubidecarenone 50 MG CAP PO SCH (09:14)
[2018-01-28] MEDS: Sodium Chloride 0.9% 1,000 ML IV SCH (14:02)
[2018-01-28] MEDS: tiZANidine HCl 4 MG TAB PO PRN (16:56)
[2018-01-28] MEDS: Atorvastatin Calcium 20 MG TAB PO SCH (21:08)
[2018-01-28] MEDS: Gabapentin 300 MG CAP PO SCH (21:08)
[2018-01-29] MEDS: Sodium Chloride 0.9% 1,000 ML IV SCH ×2 (05:29→16:30)
--- NOTE | 2018-01-29 07:28 | PRG ---
DATE OF SERVICE: 01/29/2018 I saw Ms. Gonzalez this morning in her hospital room. She is still awaiting placement in inpatient rehab ilitation. I do not find any neurological deficits. There is a tiny bit of drainage for the most sánchez perior portion of the incision, but otherwise it is a clean and dry. As long as she is able to use a bedside commode and not soiling herself, we can address just the draining area and leave the rest op en to air. We will continue Levaquin for now. Another 4 days at least will be used. Once there is a bed open in inpatient rehabilitation she will be transferred.
[2018-01-29] MEDS: Ubidecarenone 50 MG CAP PO SCH (08:44)
[2018-01-29] MEDS: hydrALAZINE 25 MG TAB PO SCH ×3 (08:44→20:21)
[2018-01-29] MEDS: Allopurinol 300 MG TAB PO SCH (08:44)
[2018-01-29] MEDS: Ferrous Sulfate 325 MG TAB PO SCH (08:45)
[2018-01-29] MEDS: DULoxetine 30 MG CAP PO SCH ×2 (08:45→20:18)
[2018-01-29] MEDS: metFORMIN 500 MG TAB PO SCH ×2 (08:45→20:19)
[2018-01-29] MEDS: Fish Oil 1,000 MG CAP PO SCH ×2 (08:46→20:20)
[2018-01-29] MEDS: Loratadine 10 MG TAB PO SCH (08:46)
[2018-01-29] MEDS: Cyanocobalamin (Vitamin B-12) 1,000 MCG TAB PO SCH (08:46)
[2018-01-29] MEDS: Folic Acid 1 MG TAB PO SCH (08:46)
[2018-01-29] MEDS: Carvedilol 25 MG TAB PO SCH ×2 (08:46→20:18)
[2018-01-29] MEDS: Furosemide 20 MG TAB PO SCH (08:46)
--- NOTE | 2018-01-29 09:07 | PQF ---
This patient required a transfusion ordered by anesthesia during this admission. The indication for that transfusion was acute blood loss anemia from surgery. All other information should be obtained from the ordering physician. KRISTEN
[2018-01-29] MEDS: Atorvastatin Calcium 20 MG TAB PO SCH (20:19)
[2018-01-29] MEDS: Gabapentin 300 MG CAP PO SCH (20:19)
[2018-01-30] MEDS: Sodium Chloride 0.9% 1,000 ML IV SCH (05:04)
--- NOTE | 2018-01-30 07:01 | PRG ---
DATE OF SERVICE: 01/30/2018 Ms. Gonzalez remains in the hospital. Yesterday, she walked about 20 yards down the hallway and back. S he is resting comfortably this morning as I entered the room and she has oxygen 2 liters by nasal can nula in place. She has no complaints. Ms. Gonzalez has been afebrile with normal vital signs overnight. Her oxygen saturation is in the mid 90s. Ms. Gonzalez lives by herself. She is 83 years old. She is making progress with walking a bit more each day, but she is not completely independent. She is an ideal candidate for inpatient rehabilitation. She will continue to get better over the next week and become independent soon, in my opinion. Unf ortunately, her insurance provider has deemed her unfit for inpatient rehabilitation and other arrang ements will have to be made unless they change their mind. We will continue to work on the placement .
--- NOTE | 2018-01-30 09:50 | ULT ---
ULTRASOUND WITH DOPPLER DUPLEX VENOUS LOWER EXTREMITY BILATERAL: CPT: 98954 ICD-10-PCS: B54D INDICATION: Hypoxia with immobility, lower extremity edema. TECHNIQUE: Color flow Doppler, spectral waveform analysis of pulsed Doppler, and fregoso-scale imaging with pamella pérez and augmentation, were used to evaluate the bilateral common femoral, femoral, popliteal, billing rep ior tibial, and superficial femoral, veins; and the proximal portions of the profunda femoral and gre ater saphenous, veins. FINDINGS: There is appropriate compressibility and flow within the imaged deep venous system of each lower extr emity without evidence of deep venous thrombosis. IMPRESSION: No deep venous thrombosis of the visualized bilateral lower extremities. POS: [facility]
[2018-01-30] MEDS: DULoxetine 30 MG CAP PO SCH ×2 (09:53→21:49)
[2018-01-30] MEDS: hydrALAZINE 25 MG TAB PO SCH ×3 (09:53→21:49)
[2018-01-30] MEDS: metFORMIN 500 MG TAB PO SCH ×2 (09:53→21:49)
[2018-01-30] MEDS: Furosemide 20 MG TAB PO SCH (09:55)
[2018-01-30] MEDS: Allopurinol 300 MG TAB PO SCH (09:55)
[2018-01-30] MEDS: Carvedilol 25 MG TAB PO SCH ×2 (09:55→21:49)
[2018-01-30] MEDS: Ubidecarenone 50 MG CAP PO SCH (10:01)
[2018-01-30] MEDS: Cyanocobalamin (Vitamin B-12) 1,000 MCG TAB PO SCH (10:02)
[2018-01-30] MEDS: Ferrous Sulfate 325 MG TAB PO SCH (10:02)
[2018-01-30] MEDS: Loratadine 10 MG TAB PO SCH (10:02)
[2018-01-30] MEDS: Folic Acid 1 MG TAB PO SCH (10:02)
[2018-01-30] MEDS: Fish Oil 1,000 MG CAP PO SCH ×2 (10:03→21:50)
[2018-01-30 16:53] LABS: #Basophils 0.1 thou/uL (0.0-0.2); #Eosinphils 0.1 thou/uL (0.0-0.7); #Lymphocytes 2.2 thou/uL (1.20-3.40); #Monocytes 0.9 thou/uL (0.11-0.59); #Neutrophils 9.4 thou/uL (1.40-6.50); %Basophils 0.8 % (0.0-1.0); %Eosinophils 0.6 % (0.0-10.0); %Monocytes 7.4 % (0.0-10.0); %Neutrophils 74.1 % (42.0-75.0); Hemoglobin 9.9 g/dL (12.0-16.0); Mean Corpuscular HGB CONC 33.2 g/dL (32.0-36.0); Mean Corpuscular Hemoglobin 32.2 pg (27.0-31.0); Mean Corpuscular Volume 96.9 fL (78.0-98.0); Mean Platelet Volume 8.3 fL (7.4-10.4); Platelet Count 198 thou/uL (130-400); RBC Distribution Width 14.8 % (11.5-14.5); Red Blood Cell (RBC) Count 3.09 mill/uL (4.20-5.40); White Blood Cell (WBC) Count 12.6 thou/uL (4.8-10.8)
[2018-01-30 17:07] LABS: ALT (SGPT) 17 U/L (8-55); AST (SGOT) 18 U/L (5-34); Albumin 3.4 g/dL (3.4-4.8); Alkaline Phosphatase 56 U/L (40-150); Anion Gap 17 mmol/L (10-20); BUN (Urea Nitrogen) 34 mg/dL (9.8-20.1); Bilirubin, Total 0.9 mg/dL (0.2-1.2); Calc. Creatinine Clearance 34 mL/min (70-130); Calcium 9.9 mg/dL (7.8-10.44); Carbon Dioxide 24 mmol/L (23-31); Chloride 101 mmol/L (98-107); Estimated GFR-MDRD 60; Globulin 2.4 g/dL (2.4-3.5); Glucose 142 mg/dL (83-110); Magnesium 1.6 mg/dL (1.6-2.6); Phosphorus 4.3 mg/dL (2.3-4.7); Potassium 3.6 mmol/L (3.5-5.1); Protein, Total 5.8 g/dL (6.0-8.3); Sodium 138 mmol/L (136-145)
[2018-01-30 17:10] LABS: Troponin I 0.275 ng/mL (< 0.028)
[2018-01-30 17:17] LABS: Bilirubin Small (Negative); Blood, Urine Negative (Negative); Clarity CLOUDY (Clear); Glucose, Urine (Dipstick) Negative (Negative); Leukocyte Small (Negative); Nitrite Negative (Negative); Protein, Urine (Dipstick) 30 mg/dL (Neg-Trace); Specific Gravity, Urine 1.018 (1.002-1.036); Urobilinogen 0.2 mg/dL (0.2-1.0); pH, Urine 5.5 (5.0-9.0)
[2018-01-30 17:19] LABS: Bacteria/HPF Rare-Few HPF (None Seen); Hyaline Casts/LPF 7-10 HYALINE CAST LPF (0-3 Hyaline); Pathc Cast-AUWi Flag 1.59 (0-2.49)
--- NOTE | 2018-01-30 17:28 | RAD ---
PORTABLE AP CHEST X-RAY 01/30/18 HISTORY: Shortness of breath and tachypnea. COMPARISON: 09/24/17. FINDINGS: Dual lead left subclavian cardiac pacemaking device remains in place. There are bibasilar pleural and parenchymal lung changes greater at the left lung base. The findings are likely related to bilateral pleural effusions and associated atelectasis. However, pneumonia in the retrocardiac region left panfilo g base is a possibility. The cardiac silhouette is obscured but probably mildly enlarged. Vascular ca lcifications seen in the thoracic aorta. Pulmonary vasculature is within normal limits. There is oste openia. IMPRESSION: Bibasilar pleural and parenchymal lung changes likely related to bilateral pleural effusions and atel ectasis. However, pneumonia at the left lung base is a possibility and followup to complete resolutio n is recommended. POS: ISAIAH
[2018-01-30 17:33] LABS: RBC/HPF None Seen HPF (0-3); Renal Epithelial None Seen HPF (0-3); Transitional Epithelial NONE SEEN HPF (0-3)
[2018-01-30 21:10] LABS: Troponin I 0.221 ng/mL (< 0.028)
[2018-01-30] MEDS: Atorvastatin Calcium 20 MG TAB PO SCH (21:49)
[2018-01-30] MEDS: Gabapentin 300 MG CAP PO SCH (21:49)
--- NOTE | 2018-01-30 21:56 | PDOC.PN ---
- Subjective Encounter Start Date: 01/30/18 Encounter Start Time: 22:00 Patient seen and examined for SOB/tachypnea. Patient denies any complaints. Follows Dr Mejia. - Objective MAR Reviewed: Yes Vital Signs & Weight: Vital Signs (12 hours) Temp Pulse Resp BP BP Pulse Ox 01/30/18 19:50 98.4 F 87 25 H 129/59 L 92 L 01/30/18 16:09 97 01/30/18 15:31 76 124/70 01/30/18 15:05 98.5 F 73 34 H 124/70 97 01/30/18 12:07 76 26 H 126/64 93 L 01/30/18 10:00 145/89 H Weight Weight 128 lb 6.4 oz I&O: 01/29/18 01/30/18 01/31/18 06:59 06:59 06:59 Intake Total 620 710 200 Output Total 300 Balance 320 710 200 Result Diagrams: 02/01/18 04:01 02/01/18 04:01 Additional Labs: Accuchecks 01/30/18 01/30/18 01/30/18 20:52 15:31 11:02 POC Glucose 156 H 147 H 133 H 01/30/18 06:33 POC Glucose 168 H Laboratory Tests 01/30/18 01/30/18 01/30/18 16:35 16:35 20:39 Troponin I 0.275 H 0.221 H B-Natriuretic Peptide 748.7 H Radiology Reviewed by me: Yes (CXR - ?LL infiltrate ) EKG Reviewed by me: Yes (Paced) Phys Exam - Physical Examination Constitutional: NAD Respiratory: no wheezing Bibasilar rales with scat rhonchi Cardiovascular: RRR, no rub Gastrointestinal: soft, non-tender, positive bowel sounds Musculoskeletal: no edema Neurological: non-focal, moves all 4 limbs Dx/Plan - Plan DVT proph w/SCDs IMPRESSION: 1. SOB - Possibly due to LLL pneumonia with mild CHF exacerbation 2. Acute on chronic CHF - EF unknown 3. LLL pneumonia ? Pneumococcal r/o Aspiration 4. Elevated troponins due to CHF. PLAN: Gentle IV diuresis Add Cefepime to PO Levaquin Cont Coreg, ACEI and Hydralazine Encourage IS Check pacemaker Obtain Echo report from Dr Mejia's office Full code. DPOA - to be verified. Will follow. Thank you for this consultation. Review of Systems - Review of Systems Respiratory: Cough, Dry, SOB with Excertion. negative: Shortness of Breath, Hemoptysis, Pleuritic Pain, Sputum, Wheezing Cardiovascular: negative: chest pain, palpitations, orthopnea, paroxysmal nocturnal dyspnea, edema, light headedness, other Gastrointestinal: negative: Nausea, Vomiting, Abdominal Pain, Diarrhea, Constipation, Melena, Hematochezia, Other Genitourinary: negative: Dysuria, Frequency, Incontinence, Hematuria, Retention , Other - Medications/Allergies Allergies/Adverse Reactions: Allergies Allergy/AdvReac Type Severity Reaction Status Date / Time ibuprofen [From Motrin] AdvReac Mild Nausea Verified 01/20/18 12:18 Medications: Current Medications Acetaminophen (Tylenol) 650 mg PO Q4H PRN PRN Reason: Headache/Fever or Pain Last Admin: 01/27/18 17:45 Dose: 650 mg Acetaminophen/Codeine Phosphate (Tylenol #3) 1 tab PO Q3H PRN PRN Reason: Mild Pain (1-3) Last Admin: 01/28/18 16:52 Dose: 1 tab Acetaminophen/Codeine Phosphate (Tylenol #3) 2 tab PO Q3H PRN PRN Reason: Moderate Pain (4-6) Last Admin: 01/25/18 14:27 Dose: 2 tab Al Hydroxide/Mg Hydroxide (Maalox) 30 ml PO Q4H PRN PRN Reason: Indigestion Allopurinol (Zyloprim) 300 mg PO [facility] Last Admin: 01/30/18 09:55 Dose: 300 mg Atorvastatin Calcium (Lipitor) 20 mg PO [facility] Last Admin: 01/29/18 20:19 Dose: 20 mg Benazepril HCl (Lotensin) 40 mg PO [facility] Last Admin: 01/30/18 10:00 Dose: 40 mg Bisacodyl (Dulcolax) 10 mg UT Q12H PRN PRN Reason: Constipation Last Admin: 01/28/18 03:27 Dose: 10 mg Carvedilol (Coreg) 25 mg PO BID [facility] Last Admin: 01/30/18 09:55 Dose: 25 mg Coenzyme Q10 (Coenzyme Q10) 100 mg PO [facility] Last Admin: 01/30/18 10:01 Dose: 100 mg Cyanocobalamin (Vitamin B-12) 1,000 mcg PO [facility] Last Admin: 01/30/18 10:02 Dose: 1,000 mcg Dextrose/Water (Dextrose 50%) 25 gm IVP PRN PRN PRN Reason: HYPOGLYCEMIA PROTOCOL Diphenhydramine HCl (Benadryl) 25 mg IVP Q6H PRN PRN Reason: Itching Duloxetine HCl (Cymbalta) 30 mg PO BID [facility] Last Admin: 01/30/18 09:53 Dose: 30 mg Fentanyl (Pacu-Sublimaze) 25 mcg SLOW IVP Q10MIN PRN PRN Reason: Moderate to Severe Pain/PACU Ferrous Sulfate ([facility]ol) [facility] [place] Last Admin: 01/30/18 10:02 Dose: 325 mg Fish Oil (Fish Oil) 1,000 mg PO BID [facility] Last Admin: 01/30/18 10:03 Dose: 1,000 mg Folic Acid (Folvite) [facility] [place] Last Admin: 01/30/18 10:02 Dose: 1 mg Furosemide (Lasix) 20 mg SLOW IVP 0600,1400 [facility] Gabapentin (Neurontin) 300 mg PO HS [facility] Last Admin: 01/29/18 20:19 Dose: 300 mg Glucagon (Glucagon) 1 mg IM PRN PRN PRN Reason: HYPOGLYCEMIA PROTOCOL Hydralazine HCl (Apresoline) 100 mg PO TID [facility] Last Admin: 01/30/18 15:31 Dose: 100 mg Dextrose/Water (D5w) 1,000 mls @ 0 mls/hr IV INF PRN; As Directed PRN Reason: HYPOGLYCEMIA PROTOCOL Cefepime HCl 1 gm/ Sodium (Chloride) 100 mls @ 200 mls/hr IVPB Q12HR [facility] Cefepime HCl 1 gm/ Sodium (Chloride) 100 mls @ 200 mls/hr IVPB ONE [facility] Magnesium Sulfate 2 gm/ Sodium (Chloride) 104 mls @ 100 mls/hr IVPB ONE [facility] Insulin Human Lispro (Humalog) 0 units SC .MILD SLIDING SCALE PRN; Protocol PRN Reason: MILD SLIDING SCALE Last Admin: 01/28/18 06:21 Dose: 2 unit Levofloxacin (Levaquin) 250 mg PO 0600 [facility] Stop: 02/02/18 06:01 Last Admin: 01/30/18 05:38 Dose: 250 mg Loratadine (Claritin) [facility] [place] Last Admin: 01/30/18 10:02 Dose: 10 mg Magnesium Hydroxide (Milk Of Magnesium) 30 ml PO Q12H PRN PRN Reason: Constipation Metformin HCl (Glucophage) 500 mg PO BID [facility] Last Admin: 01/30/18 09:53 Dose: 500 mg Miscellaneous Medication (Pharmacy To Dose) 1 each IVPB ONE PRN PRN Reason: Pharmacy to dose Morphine Sulfate (Morphine) 2 mg SLOW IVP Q1H PRN PRN Reason: Moderate Breakthrough Pain Morphine Sulfate (Morphine) 4 mg SLOW IVP Q1H PRN PRN Reason: Severe Breakthrough Pain Potassium Chloride (Klor-Con 10) 20 meq PO BID[facility] Promethazine HCl (Phenergan) 12.5 mg PO Q4H PRN PRN Reason: Nausea/Vomiting Last Admin: 01/27/18 21:35 Dose: 12.5 mg Promethazine HCl (Phenergan) 12.5 mg IM Q4H PRN PRN Reason: Nausea/Vomiting Last Admin: 01/28/18 03:27 Dose: 12.5 mg Sodium Chloride (Flush - Normal Saline) 10 ml IVF PRN PRN PRN Reason: Saline Flush Tizanidine HCl (Zanaflex) 4 mg PO Q6H PRN PRN Reason: Muscle Spasm Last Admin: 01/28/18 16:56 Dose: 4 mg
[2018-01-30] MEDS ORDERED: Magnesium Sulfate 2 GM in Sodium Chloride 0.9% 100 ML IVPB SCH (22:00)
[2018-01-30] MEDS ORDERED: Dextrose 5% in Water 1,000 ML IV PRN (22:15)
[2018-01-30] MEDS ORDERED: HumaLOG 300 UNITS/3 ML VIAL SC PRN (22:15)
[2018-01-30] MEDS ORDERED: Magnesium 2 GM/NS 0.9% 100 ML 2 GM in Premix Bag 1 BAG IVPB SCH (22:45)
[2018-01-30] MEDS ORDERED: Cefepime 1 GM in Sodium Chloride 0.9% 100 ML IVPB SCH (22:45)
[2018-01-31] MEDS ORDERED: Furosemide 20 MG/2 ML VIAL SLOW IVP SCH ×3 (06:00→16:00)
--- NOTE | 2018-01-31 07:10 | PRG ---
DATE OF SERVICE: 01/31/2018 NEUROSURGERY NOTE SUBJECTIVE: I saw Ms. Gonzalez in her hospital room this morning, I saw in the telemetry unit now. Yest erday, she had some breathing difficulty, prompting medical team consultation and I transferred to [facility]. Overnight, Ms. Gonzalez was told that her pacemaker may not be working appropriately. I have n ot seen a definitive assessment from the medical team yet. When I see in her hospital room this morn ing, Ms. Gonzalez is getting a breathing treatment. As I come in, her sats were in the high 90s, now in the 91%-92%, blood pressures have been in the 120s to 140s. I do not see any recorded fevers. Ms. Lico cox is awake. She is doing well this morning. She has no new motor deficits. Ultrasound of her low er extremities was negative yesterday. Our plan is to continue mobilization, so long as she can tole rate it. We will sort out the breathing difficulty and pacemaker issue before transferring her. She will be ready for transfer at any time. We will await for colleagues in the medical team to assist with the plan.
[2018-01-31] MEDS ORDERED: Potassium Chloride 20 MEQ TAB PO SCH ×2 (08:00→16:15)
[2018-01-31] MEDS: hydrALAZINE 25 MG TAB PO SCH ×2 (09:16→15:14)
[2018-01-31] MEDS: Cyanocobalamin (Vitamin B-12) 1,000 MCG TAB PO SCH (09:17)
[2018-01-31] MEDS: Allopurinol 300 MG TAB PO SCH (09:17)
[2018-01-31] MEDS: Ferrous Sulfate 325 MG TAB PO SCH (09:18)
[2018-01-31] MEDS: Folic Acid 1 MG TAB PO SCH (09:18)
[2018-01-31] MEDS: Loratadine 10 MG TAB PO SCH (09:18)
[2018-01-31] MEDS: Fish Oil 1,000 MG CAP PO SCH ×2 (09:18→21:36)
[2018-01-31] MEDS: Ubidecarenone 50 MG CAP PO SCH (09:18)
[2018-01-31] MEDS: DULoxetine 30 MG CAP PO SCH ×2 (09:19→21:36)
[2018-01-31] MEDS: metFORMIN 500 MG TAB PO SCH ×2 (09:19→21:36)
[2018-01-31] MEDS: Carvedilol 25 MG TAB PO SCH ×2 (09:19→21:40)
[2018-01-31] MEDS: guaiFENesin ER 600 MG TAB PO SCH ×2 (09:19→21:35)
[2018-01-31] MEDS: Cefepime 1 GM in Sodium Chloride 0.9% 100 ML IVPB SCH ×2 (09:58→21:34)
[2018-01-31] MEDS: HumaLOG 300 UNITS/3 ML VIAL SC PRN (11:35)
[2018-01-31] MEDS ORDERED: hydrALAZINE 20 MG/ML VIAL SLOW IVP PRN (16:03)
[2018-01-31] MEDS ORDERED: Saccharomyces boulardii 250 MG CAP PO SCH (16:15)
[2018-01-31] MEDS: Acetaminophen/Codeine 30-300mg Tablet PO PRN (19:47)
[2018-01-31] MEDS ORDERED: hydrALAZINE 25 MG TAB PO SCH (21:00)
[2018-01-31] MEDS: Gabapentin 300 MG CAP PO SCH (21:35)
[2018-01-31] MEDS: Atorvastatin Calcium 20 MG TAB PO SCH (21:36)
--- NOTE | 2018-01-31 21:52 | PDOC.PN ---
- Subjective Encounter Start Date: 01/31/18 Encounter Start Time: 15:00 Patient seen and examined for SOB. No new complaints. No overnight events. SOB improving. Some dry cough. - Objective MAR Reviewed: Yes Vital Signs & Weight: Vital Signs (12 hours) Temp Pulse Resp BP BP Pulse Ox 01/31/18 21:40 88 01/31/18 18:45 92 16 96 01/31/18 15:45 99.3 F 01/31/18 15:22 84 16 117/58 L 94 L 01/31/18 15:14 84 117/58 L 01/31/18 14:07 80 16 93 L 01/31/18 11:40 97.5 F L 78 18 111/56 L 94 L 01/31/18 11:22 91 L 01/31/18 10:24 76 16 96 Weight Weight 129 lb I&O: 01/30/18 01/31/18 02/01/18 06:59 06:59 06:59 Intake Total 710 600 720 Output Total 200 Balance 710 600 520 Result Diagrams: 02/01/18 04:01 02/01/18 04:01 Additional Labs: Accuchecks 01/31/18 01/31/18 01/31/18 20:51 16:42 10:38 POC Glucose 187 H 138 H 164 H 01/31/18 05:48 POC Glucose 138 H EKG Reviewed by me: Yes (Tele paced) Phys Exam - Physical Examination Constitutional: NAD Respiratory: no wheezing, no rhonchi Bibasilar rales Cardiovascular: RRR, no rub Gastrointestinal: soft, non-tender, positive bowel sounds Musculoskeletal: no edema Neurological: moves all 4 limbs Dx/Plan - Plan DVT proph w/SCDs IMPRESSION: 1. SOB - due to LLL pneumonia with mild CHF exacerbation 2. Acute on chronic systolic /diastolic CHF 3. LLL pneumonia ? Healthcare associated 4. Elevated troponins due to CHF PLAN: Change Lasix to 20 mg IV BID AM labs Cont Cefepime with Levaquin Pacemaker check - ok Echo reviewed Swallow test ok Cont Coreg, ACEI and Hydralazine Encourage IS Review of Systems - Review of Systems Constitutional: negative: fever, chills, sweats, weakness, malaise, other Respiratory: SOB with Excertion. negative: Cough, Dry, Shortness of Breath, Hemoptysis, Pleuritic Pain, Sputum, Wheezing Cardiovascular: negative: chest pain, palpitations, orthopnea, paroxysmal nocturnal dyspnea, edema, light headedness, other - Medications/Allergies Allergies/Adverse Reactions: Allergies Allergy/AdvReac Type Severity Reaction Status Date / Time ibuprofen [From Motrin] AdvReac Mild Nausea Verified 01/20/18 12:18 Medications: Current Medications Acetaminophen (Tylenol) 650 mg PO Q4H PRN PRN Reason: Headache/Fever or Pain Last Admin: 01/27/18 17:45 Dose: 650 mg Acetaminophen/Codeine Phosphate (Tylenol #3) 1 tab PO Q3H PRN PRN Reason: Mild Pain (1-3) Last Admin: 01/28/18 16:52 Dose: 1 tab Acetaminophen/Codeine Phosphate (Tylenol #3) 2 tab PO Q3H PRN PRN Reason: Moderate Pain (4-6) Last Admin: 01/31/18 19:47 Dose: 2 tab Al Hydroxide/Mg Hydroxide (Maalox) 30 ml PO Q4H PRN PRN Reason: Indigestion Albuterol/Ipratropium (Duoneb) 3 ml NEB Q4H PRN PRN Reason: SOB &/or Wheezing Albuterol/Ipratropium (Duoneb) 3 ml NEB [id number] Last Admin: 01/31/18 18:45 Dose: 3 ml Allopurinol (Zyloprim) 300 mg PO [facility] Last Admin: 01/31/18 09:17 Dose: 300 mg Atorvastatin Calcium (Lipitor) 20 mg PO [facility] Last Admin: 01/31/18 21:36 Dose: 20 mg Benazepril HCl (Lotensin) 40 mg PO [facility] Last Admin: 01/31/18 09:17 Dose: 40 mg Bisacodyl (Dulcolax) 10 mg NE Q12H PRN PRN Reason: Constipation Last Admin: 01/28/18 03:27 Dose: 10 mg Carvedilol (Coreg) 25 mg PO BID [facility] Last Admin: 01/31/18 21:40 Dose: Not Given Coenzyme Q10 (Coenzyme Q10) 100 mg PO [facility] Last Admin: 01/31/18 09:18 Dose: 100 mg Cyanocobalamin (Vitamin B-12) 1,000 mcg PO [facility] Last Admin: 01/31/18 09:17 Dose: 1,000 mcg Dextrose/Water (Dextrose 50%) 25 gm IVP PRN PRN PRN Reason: HYPOGLYCEMIA PROTOCOL Diphenhydramine HCl (Benadryl) 25 mg IVP Q6H PRN PRN Reason: Itching Duloxetine HCl (Cymbalta) 30 mg PO BID [facility] Last Admin: 01/31/18 21:36 Dose: 30 mg Fentanyl (Pacu-Sublimaze) 25 mcg SLOW IVP Q10MIN PRN PRN Reason: Moderate to Severe Pain/PACU Ferrous Sulfate (Feosol) 325 mg PO QAM [facility] Last Admin: 01/31/18 09:18 Dose: 325 mg Fish Oil (Fish Oil) 1,000 mg PO BID [facility] Last Admin: 01/31/18 21:36 Dose: 1,000 mg Folic Acid (Folvite) 1 mg PO QAM [facility] Last Admin: 01/31/18 09:18 Dose: 1 mg Furosemide (Lasix) 20 mg SLOW IVP DAILY [facility] Last Admin: 01/31/18 09:19 Dose: 20 mg Gabapentin (Neurontin) 300 mg PO HS [facility] Last Admin: 01/31/18 21:35 Dose: 300 mg Glucagon (Glucagon) 1 mg IM PRN PRN PRN Reason: HYPOGLYCEMIA PROTOCOL Guaifenesin (Mucinex) 600 mg PO Q12HR [facility] Last Admin: 01/31/18 21:35 Dose: 600 mg Hydralazine HCl (Apresoline) 25 mg PO BID [facility] Last Admin: 01/31/18 21:40 Dose: Not Given Hydralazine HCl (Apresoline) 10 mg SLOW IVP Q4H PRN PRN Reason: SBP Greater Than 180 Dextrose/Water (D5w) 1,000 mls @ 0 mls/hr IV INF PRN; As Directed PRN Reason: HYPOGLYCEMIA PROTOCOL Cefepime HCl 1 gm/ Sodium (Chloride) 100 mls @ 200 mls/hr IVPB Q12HR [facility] Last Admin: 01/31/18 21:34 Dose: 100 mls Dextrose/Water (D5w) 1,000 mls @ 0 mls/hr IV .Q0M PRN; As Directed PRN Reason: Hypoglycemia Insulin Human Lispro (Humalog) 0 units SC .MILD SLIDING SCALE PRN; Protocol PRN Reason: MILD SLIDING SCALE Last Admin: 01/31/18 11:35 Dose: 2 unit Insulin Human Lispro (Humalog) 0 units SC .BEDTIME SLIDING SC PRN PRN Reason: Bedtime Correctional Scale Levofloxacin (Levaquin) 250 mg PO 0600 [facility] Stop: 02/02/18 06:01 Last Admin: 01/31/18 05:27 Dose: 250 mg Loratadine (Claritin) 10 mg PO QAM [facility] Last Admin: 01/31/18 09:18 Dose: 10 mg Magnesium Hydroxide (Milk Of Magnesium) 30 ml PO Q12H PRN PRN Reason: Constipation Metformin HCl (Glucophage) 500 mg PO BID [facility] Last Admin: 01/31/18 21:36 Dose: 500 mg Miscellaneous Medication (Pharmacy To Dose) 1 each IVPB PRN PRN PRN Reason: Pharmacy to dose Morphine Sulfate (Morphine) 2 mg SLOW IVP Q1H PRN PRN Reason: Moderate Breakthrough Pain Morphine Sulfate (Morphine) 4 mg SLOW IVP Q1H PRN PRN Reason: Severe Breakthrough Pain Potassium Chloride (K-Dur) 20 meq PO BID[facility] Promethazine HCl (Phenergan) 12.5 mg PO Q4H PRN PRN Reason: Nausea/Vomiting Last Admin: 01/27/18 21:35 Dose: 12.5 mg Promethazine HCl (Phenergan) 12.5 mg IM Q4H PRN PRN Reason: Nausea/Vomiting Last Admin: 01/28/18 03:27 Dose: 12.5 mg Saccharomyces Boulardii (Florastor) 250 mg PO DAILY [facility] Sodium Chloride (Flush - Normal Saline) 10 ml IVF PRN PRN PRN Reason: Saline Flush Tizanidine HCl (Zanaflex) 4 mg PO Q6H PRN PRN Reason: Muscle Spasm Last Admin: 01/28/18 16:56 Dose: 4 mg
[2018-02-01 05:07] LABS: Anion Gap 17 mmol/L (10-20); BUN (Urea Nitrogen) 46 mg/dL (9.8-20.1); Calc. Creatinine Clearance 24 mL/min (70-130); Calcium 9.5 mg/dL (7.8-10.44); Carbon Dioxide 23 mmol/L (23-31); Chloride 102 mmol/L (98-107); Estimated GFR-MDRD 38; Glucose 174 mg/dL (83-110); Magnesium 2.1 mg/dL (1.6-2.6); Potassium 3.9 mmol/L (3.5-5.1); Sodium 138 mmol/L (136-145)
[2018-02-01] MEDS: Milk Of Magnesia 30 ML UDCUP PO PRN ×2 (05:47→17:58)
[2018-02-01] MEDS ORDERED: Furosemide 20 MG/2 ML VIAL SLOW IVP SCH (06:00)
[2018-02-01 06:16] LABS: Hemoglobin 10.1 g/dL (12.0-16.0); Mean Corpuscular HGB CONC 33.4 g/dL (32.0-36.0); Mean Corpuscular Hemoglobin 32.3 pg (27.0-31.0); Mean Corpuscular Volume 96.7 fL (78.0-98.0); Mean Platelet Volume 8.6 fL (7.4-10.4); Platelet Count 199 thou/uL (130-400); RBC Distribution Width 15.1 % (11.5-14.5); Red Blood Cell (RBC) Count 3.14 mill/uL (4.20-5.40); White Blood Cell (WBC) Count 12.6 thou/uL (4.8-10.8)
[2018-02-01 06:40] LABS: Band 4 % (5-11); Eosinophils 1 % (0-10); Lymphocytes 13 % (21-51); MDiff Complete? YES; Monocytes 9 % (0-10); Neutrophil 73 % (42-75)
[2018-02-01] MEDS ORDERED: Potassium Chloride 20 MEQ TAB PO SCH (08:00)
[2018-02-01] MEDS ORDERED: Allopurinol 100 MG TAB PO SCH (09:00)
[2018-02-01] MEDS: Cefepime 1 GM in Sodium Chloride 0.9% 100 ML IVPB SCH ×2 (09:52→20:19)
[2018-02-01] MEDS: Cyanocobalamin (Vitamin B-12) 1,000 MCG TAB PO SCH (09:53)
[2018-02-01] MEDS: Ferrous Sulfate 325 MG TAB PO SCH (09:53)
[2018-02-01] MEDS: guaiFENesin ER 600 MG TAB PO SCH ×2 (09:53→20:19)
[2018-02-01] MEDS: Fish Oil 1,000 MG CAP PO SCH ×2 (09:53→20:19)
[2018-02-01] MEDS: Folic Acid 1 MG TAB PO SCH (09:53)
[2018-02-01] MEDS: DULoxetine 30 MG CAP PO SCH ×2 (09:53→20:19)
[2018-02-01] MEDS: Ubidecarenone 50 MG CAP PO SCH (09:53)
[2018-02-01] MEDS: Saccharomyces boulardii 250 MG CAP PO SCH (09:53)
[2018-02-01] MEDS: Loratadine 10 MG TAB PO SCH (09:54)
[2018-02-01] MEDS: Carvedilol 6.25 MG TAB PO SCH ×2 (09:54→17:58)
[2018-02-01] MEDS: hydrALAZINE 25 MG TAB PO SCH ×2 (09:54→20:20)
[2018-02-01] MEDS ORDERED: Dextrose 5 % And 0.9 % NaCl 1,000 ML IV SCH (12:30)
[2018-02-01] MEDS: Acetaminophen 325 MG TAB PO PRN (17:58)
--- NOTE | 2018-02-01 18:14 | CON ---
DATE OF SERVICE: 02/01/2018 SUBJECTIVE: Mrs. Gonzalez is generally stable from a neurosurgical perspective. She has had very minimal wound drainage over the last 24 hours. She is still being evaluated by the medical team with respec t to her cardiopulmonary issues which are the main ongoing hospitalization issue precluding transfer. We will defer to them about timing of transfer based on these issues. Patient's mental status has waxed and waned per the nursing staff and it seems this is most likely to be her baseline.
--- NOTE | 2018-02-01 19:24 | RAD ---
SUPINE ABDOMEN 02/01/18 HISTORY: Abdominal pain. There is stool and gas seen in the colon. There is a gas filled dilated loop of bowel in the mid abdo men which appears to represent a small bowel loop. There may be distention of the stomach although th is is difficult to evaluate. There appears to be calcified granuloma in the spleen. IMPRESSION: Single supine abdomen is inadequate evaluation for abdominal pain. There is a nonspecific mildly dila hill loop of what appears to be small bowel in the mid abdomen. POS: [facility]
[2018-02-01] MEDS ORDERED: Simethicone Chewable 80 MG TAB PO PRN (19:41)
[2018-02-01] MEDS ORDERED: Bisacodyl 10 MG SUPP PR PRN (19:41)
[2018-02-01] MEDS ORDERED: Fleet Enema 133 ML BOT PR PRN (19:41)
[2018-02-01] MEDS ORDERED: Bisacodyl 5 MG TAB PO PRN (19:41)
[2018-02-01] MEDS ORDERED: Sodium Chloride 0.9% 500 ML IV SCH (19:45)
[2018-02-01] MEDS: Dextrose 5 % And 0.9 % NaCl 1,000 ML IV SCH ×2 (20:12→21:48)
[2018-02-01] MEDS: Atorvastatin Calcium 20 MG TAB PO SCH (20:19)
[2018-02-01] MEDS: Gabapentin 300 MG CAP PO SCH (20:19)
[2018-02-01] MEDS ORDERED: Dextrose 5 % And 0.9 % NaCl 500 ML IV SCH (20:45)
--- NOTE | 2018-02-01 23:39 | PDOC.PN ---
- Subjective Encounter Start Date: 02/01/18 Encounter Start Time: 14:00 Patient seen and examined for med mngt. Confused since last evening. Received 2 doses of Tylenol #3 around 20 pm. Previous dose on . Pulled IV access. Poor oral intake. - Objective MAR Reviewed: Yes Vital Signs & Weight: Vital Signs (12 hours) Temp Pulse Resp BP Pulse Ox 02/01/18 20:20 89 123/61 02/01/18 20:15 97.5 F L 89 22 H 100 02/01/18 19:08 89 16 90 L 02/01/18 14:31 90 18 Weight Weight 130 lb I&O: 01/31/18 02/01/18 02/02/18 06:59 06:59 06:59 Intake Total 600 1020 500 Output Total 200 Balance 600 820 500 Result Diagrams: 02/02/18 03:30 02/02/18 03:30 Additional Labs: Accuchecks 02/01/18 02/01/18 02/01/18 20:11 16:22 10:41 POC Glucose 215 H 218 H 147 H 02/01/18 05:55 POC Glucose 195 H Radiology Reviewed by me: Yes (KUB - No obstruction) EKG Reviewed by me: Yes (Tele paced) Phys Exam - Physical Examination Confused Respiratory: no wheezing, no rhonchi Scat bibasilar rales with scat rhonchi, No accessory muscle use Cardiovascular: RRR, no rub no heaves Gastrointestinal: soft, positive bowel sounds ?mild tenderness, Distended Musculoskeletal: no edema Neuro/Psych - Confused, intermittently follows commands, Moves all 4 ext Dx/Plan - Plan continue antibiotics, PT/OT, incentive spirometry, DVT proph w/SCDs IMPRESSION: 1. Toxic Metabolic Encephalopathy - multifactorial. Prob due to pain meds. 2. YOAVNA due to poor oral intake 3. Acute on chronic systolic/diastolic HF - improving 4. HCAP - improving 5. Elevated troponins due to CHF 6. DM2 on sliding scale PLAN: Gentle IV hydration due to Encephalopathy - RN trying to get IV access. PT/OT when mentation improves KUB to r/o bowel obstruction - done AM labs Cont other meds as below Cont Cefepime with Levaquin Cont Coreg and Hydralazine at low dose Review of Systems - Review of Systems Other: Cannot obtain due to current mentation. - Medications/Allergies Allergies/Adverse Reactions: Allergies Allergy/AdvReac Type Severity Reaction Status Date / Time ibuprofen [From Motrin] AdvReac Mild Nausea Verified 01/20/18 12:18 Medications: Current Medications Acetaminophen (Tylenol) 650 mg PO Q4H PRN PRN Reason: Headache/Fever or Pain Last Admin: 02/01/18 17:58 Dose: 650 mg Al Hydroxide/Mg Hydroxide (Maalox) 30 ml PO Q4H PRN PRN Reason: Indigestion Albuterol/Ipratropium (Duoneb) 3 ml NEB Q4H PRN PRN Reason: SOB &/or Wheezing Albuterol/Ipratropium (Duoneb) 3 ml NEB [id number] Last Admin: 02/01/18 19:08 Dose: 3 ml Allopurinol (Zyloprim) 100 mg PO DAILY [facility] Last Admin: 02/01/18 09:53 Dose: 100 mg Atorvastatin Calcium (Lipitor) 20 mg PO [facility] Last Admin: 02/01/18 20:19 Dose: 20 mg Benazepril HCl (Lotensin) 40 mg PO [facility] Last Admin: 01/31/18 09:17 Dose: 40 mg Bisacodyl (Dulcolax) 10 mg [place] DAILYPRN PRN PRN Reason: Constipation Bisacodyl (Dulcolax) 10 mg PO DAILYPRN PRN PRN Reason: Constipation Carvedilol (Coreg) 12.5 mg PO BID[facility] Last Admin: 02/01/18 17:58 Dose: 12.5 mg Coenzyme Q10 (Coenzyme Q10) 100 mg PO [facility] Last Admin: 02/01/18 09:53 Dose: 100 mg Cyanocobalamin (Vitamin B-12) 1,000 mcg PO [facility] Last Admin: 02/01/18 09:53 Dose: 1,000 mcg Dextrose/Water (Dextrose 50%) 25 gm IVP PRN PRN PRN Reason: HYPOGLYCEMIA PROTOCOL Diphenhydramine HCl (Benadryl) 25 mg IVP Q6H PRN PRN Reason: Itching Duloxetine HCl (Cymbalta) 30 mg PO BID [facility] Last Admin: 02/01/18 20:19 Dose: 30 mg Fentanyl (Pacu-Sublimaze) 25 mcg SLOW IVP Q10MIN PRN PRN Reason: Moderate to Severe Pain/PACU Ferrous Sulfate (Feosol) 325 mg PO QAM [facility] Last Admin: 02/01/18 09:53 Dose: 325 mg Fish Oil (Fish Oil) 1,000 mg PO BID [facility] Last Admin: 02/01/18 20:19 Dose: 1,000 mg Folic Acid (Folvite) 1 mg PO QAM [facility] Last Admin: 02/01/18 09:53 Dose: 1 mg Gabapentin (Neurontin) 300 mg PO HS [facility] Last Admin: 02/01/18 20:19 Dose: 300 mg Glucagon (Glucagon) 1 mg IM PRN PRN PRN Reason: HYPOGLYCEMIA PROTOCOL Guaifenesin (Mucinex) 600 mg PO Q12HR [facility] Last Admin: 02/01/18 20:19 Dose: 600 mg Hydralazine HCl (Apresoline) 10 mg SLOW IVP Q4H PRN PRN Reason: SBP Greater Than 180 Hydralazine HCl (Apresoline) 25 mg PO BID [facility] Last Admin: 02/01/18 20:20 Dose: Not Given Dextrose/Water (D5w) 1,000 mls @ 0 mls/hr IV INF PRN; As Directed PRN Reason: HYPOGLYCEMIA PROTOCOL Cefepime HCl 1 gm/ Sodium (Chloride) 100 mls @ 200 mls/hr IVPB Q12HR [facility] Last Admin: 02/01/18 20:19 Dose: 100 mls Dextrose/Water (D5w) 1,000 mls @ 0 mls/hr IV .Q0M PRN; As Directed PRN Reason: Hypoglycemia Dextrose/Sodium Chloride (D5 0.9% Ns) 1,000 mls @ 125 mls/hr IV .Q8H [facility] Last Admin: 02/01/18 21:48 Dose: 1,000 mls Insulin Human Lispro (Humalog) 0 units SC .MILD SLIDING SCALE PRN; Protocol PRN Reason: MILD SLIDING SCALE Last Admin: 01/31/18 11:35 Dose: 2 unit Insulin Human Lispro (Humalog) 0 units SC .BEDTIME SLIDING SC PRN PRN Reason: Bedtime Correctional Scale Levofloxacin (Levaquin) 250 mg PO 0600 [facility] Stop: 02/02/18 06:01 Last Admin: 02/01/18 05:19 Dose: 250 mg Loratadine (Claritin) [facility] Last Admin: 02/01/18 09:54 Dose: 10 mg Magnesium Hydroxide (Milk Of Magnesium) 30 ml PO Q12H PRN PRN Reason: Constipation Last Admin: 02/01/18 17:58 Dose: 30 ml Metformin HCl (Glucophage) 500 mg PO BID [facility] Last Admin: 01/31/18 21:36 Dose: 500 mg Miscellaneous Medication (Pharmacy To Dose) 1 each IVPB PRN PRN PRN Reason: Pharmacy to dose Promethazine HCl (Phenergan) 12.5 mg PO Q4H PRN PRN Reason: Nausea/Vomiting Last Admin: 01/27/18 21:35 Dose: 12.5 mg Promethazine HCl (Phenergan) 12.5 mg IM Q4H PRN PRN Reason: Nausea/Vomiting Last Admin: 01/28/18 03:27 Dose: 12.5 mg Saccharomyces Boulardii (Florastor) 250 mg PO DAILY [facility] Last Admin: 02/01/18 09:53 Dose: 250 mg Simethicone (Mylicon Chewable) 80 mg PO PCHS PRN PRN Reason: Gas Pain Sodium Biphosphate/Sodium Phosphate (Fleet Enema) 133 ml [place] DAILY PRN PRN Reason: Constipation Sodium Chloride (Flush - Normal Saline) 10 ml IVF PRN PRN PRN Reason: Saline Flush Tizanidine HCl (Zanaflex) 4 mg PO Q6H PRN PRN Reason: Muscle Spasm Last Admin: 01/28/18 16:56 Dose: 4 mg
[2018-02-02] MEDS ORDERED: Lorazepam 2 MG/ML VIAL SLOW IVP SCH ×2 (01:45→02:30)
[2018-02-02 04:16] LABS: Anion Gap 15 mmol/L (10-20); BUN (Urea Nitrogen) 55 mg/dL (9.8-20.1); Calc. Creatinine Clearance 19 mL/min (70-130); Calcium 9.1 mg/dL (7.8-10.44); Carbon Dioxide 25 mmol/L (23-31); Chloride 101 mmol/L (98-107); Estimated GFR-MDRD 29; Glucose 220 mg/dL (83-110); Magnesium 2.6 mg/dL (1.6-2.6); Phosphorus 4.5 mg/dL (2.3-4.7); Potassium 4.1 mmol/L (3.5-5.1); Sodium 137 mmol/L (136-145)
[2018-02-02 04:23] LABS: #Eosinphils 0.1 thou/uL (0.0-0.7); #Monocytes 0.9 thou/uL (0.11-0.59); #Neutrophils 13.7 thou/uL (1.40-6.50); %Basophils 0.1 % (0.0-1.0); %Eosinophils 0.6 % (0.0-10.0); %Lymphocytes 11.8 % (21.0-51.0); %Monocytes 5.6 % (0.0-10.0); Mean Corpuscular HGB CONC 32.7 g/dL (32.0-36.0); Mean Corpuscular Hemoglobin 32.5 pg (27.0-31.0); Mean Corpuscular Volume 99.4 fL (78.0-98.0); Mean Platelet Volume 8.6 fL (7.4-10.4); Platelet Count 234 thou/uL (130-400); RBC Distribution Width 15.3 % (11.5-14.5); Red Blood Cell (RBC) Count 2.76 mill/uL (4.20-5.40); White Blood Cell (WBC) Count 16.7 thou/uL (4.8-10.8)
[2018-02-02] MEDS ORDERED: Furosemide 40 MG/4 ML VIAL ONE (05:04)
[2018-02-02] MEDS ORDERED: Furosemide 40 MG/4 ML VIAL SLOW IVP SCH (05:15)
[2018-02-02] MEDS ORDERED: Dextrose 5 % And 0.9 % NaCl 1,000 ML IV SCH (09:00)
--- NOTE | 2018-02-02 09:19 | PRG ---
DATE OF SERVICE: 02/02/2018 I am seeing Mrs. Gonzalez in followup. She has continued to have some confusion, which progressed to agitation overnight, requiring Ativan administration this morning. She is very drowsy on my exam. She will wake up and open her eyes to stimulation; however, she is not responsive to my questions. She will move all fours. On exam of her back, she still has minimal drainage and incision appears to be healing well and intact. Her abdomen appears moderately distended and tight throughout. I have discussed my concerns with regard to her increasing confusion, abdominal distention, and WBC of 16.7 with the hospitalist. With regard to the elevated WBCs, this may be related to her recent infiltrate seen on chest x-ray on 2017. Dr. Guthrie would like to get CT of the chest, abdomen, and pelvis for further evaluation of the patient's abdominal distention. I will also order a noncontrast CT head for her increased confusion. He also felt that T#3 administration may be possible reason for her agitation as she had a similiar event early in her hospital course after this medication. I have discussed this plan with Dr. Reardon with this plan. KRISTEN
[2018-02-02 09:41] LABS: ALT (SGPT) 13 U/L (8-55); AST (SGOT) 17 U/L (5-34); Albumin 3.7 g/dL (3.4-4.8); Alkaline Phosphatase 59 U/L (40-150); Bilirubin, Direct 0.3 mg/dL (0.1-0.3); Bilirubin, Total 0.6 mg/dL (0.2-1.2); Lipase 14 U/L (8-78); Protein, Total 6.2 g/dL (6.0-8.3)
--- NOTE | 2018-02-02 10:16 | CT ---
CT OF THE BRAIN WITHOUT CONTRAST: INDICATION: History of altered mental status and confusion. COMPARISON: Prior exam dated 03/21/17. FINDINGS: Motion artifact limits image detail. No definite acute infarct, hemorrhage, or hydrocephalus is pres ent. The skull and extracranial soft tissues are unremarkable. Mucosal thickening involving the lef t maxillary sinus is stable to the comparison. IMPRESSION: Limited exam. No definite acute abnormality. POS: [facility]
[2018-02-02 10:18] LABS: Vitamin B12 Greater than 2000 pg/mL (211-911)
--- NOTE | 2018-02-02 10:23 | CT ---
CT CHEST WITHOUT CONTRAST CT ABDOMEN AND PELVIS WITHOUT CONTRAST: CLINICAL HISTORY: Altered mental status, encephalopathy. Aspiration pneumonia with abdominal distention. FINDINGS: Diffuse abnormal fluid-filled bowel is present involving small bowel of the abdomen and pelvis. The colon is relatively decompressed with a mild degree of scattered fecal material. This may relate to a mechanical obstruction given absence of colonic dilatation, although evaluation is limited without the presence of enteric contrast. There are bilateral moderate-sized pleural effusions with adjacent consolidation containing air bronc hograms favoring pneumonia. There is no pneumothorax. The regional soft tissues are limited in asse ssment by the absence of IV contrast. There is diffuse esophageal distention by fluid as well as gas tric distention predominantly by fluid. No pneumoperitoneum. Diffuse vascular disease is present. The spleen is atrophic with multiple granulomatous calcifications present. Small kidneys with multip le hypodensities indicating cysts are seen bilaterally, although limited by the noncontrast technique . Operative change of the lumbar spine is present. There is a left-side cardiac pacing device. IMPRESSION: 1. Abnormal findings, for which mechanical bowel obstruction is not excluded. Recommend clinical co rrelation in this regard, as the examination is limited without the presence of IV or enteric contras t. Surgical consultation would prove useful in this regard. 2. Bilateral pleural effusions, moderate in volume, with associated bilateral pulmonary parenchymal consolidation. Recommend continued radiographic followup to confirm resolution. POS: [facility]
[2018-02-02] MEDS: Cefepime 1 GM in Sodium Chloride 0.9% 100 ML IVPB SCH (10:35)
[2018-02-02] MEDS ORDERED: Lactated Ringer's 1,000 ML IV SCH (12:15)
[2018-02-02] MEDS ORDERED: Piperacillin/Tazobactam 2.25 GM in Sodium Chloride 0.9% 100 ML IVPB SCH (12:15)
--- NOTE | 2018-02-02 12:25 | CON ---
DATE OF CONSULTATION: 02/02/2018 SERVICE: Pulmonary Medicine. REASON FOR CONSULTATION: ICU patient. HISTORY OF PRESENT ILLNESS: Patient is an 83-year-old -Armenian female who underwent a decompressive laminectomy on 01/24/2018. She is currently postop day #8 from that procedure. Her postop course was complicated from pain. She ended up getting some Tylenol #3 on the . She then spent a considerable amount of time obtunded. P.o. intake was poor. She then woke up a little bit and had complaints of intermittent discomfort. She had poor p.o. intake. Ultimately, because of her pain and agitation, she ended up getting a little bit more Tylenol #3 on the . She once again became encephalopathic. Overnight, she was having some agitation. She got a dose of Ativan this morning, she is uncomfortable. She is writhing in pain. She cannot provide any additional elements of the history and remains a little encephalopathic. PAST MEDICAL HISTORY: 1. Hypertension. 2. History of VTE. 3. Osteopenia. 4. Peripheral vascular disease. 5. Dyslipidemia. 6. Type 2 diabetes mellitus. 7. Tobacco abuse. 8. Chronic kidney disease, stage 3. 9. Coronary artery disease. 10. Chronic systolic heart failure with 40% ejection fraction. PAST SURGICAL HISTORY: 1. Coronary artery bypass graft. 2. AICD placement. 3. Right common femoral endarterectomy. 4. Iliac stents. 5. Right carotid endarterectomy. 6. Cataract surgery, bilateral. FAMILY HISTORY: Noncontributory. SOCIAL HISTORY: She has a remote history of alcohol abuse. She continues to smoke a pack a day. She has a greater than [id number] history of smoking. She has no exposure to illicit drugs. ALLERGIES: MOTRIN. MEDICATIONS: List of her inpatient medications were reviewed. Multiple updates were made. REVIEW OF SYSTEMS: General, head, ears, eyes, nose, throat, cardiovascular, respiratory, GI, , musculoskeletal, neurologic, and skin is negative except as mentioned in the HPI. PHYSICAL EXAMINATION: VITAL SIGNS: Afebrile, pulse 95, blood pressure 92/63, respirations 70, saturation 97% on 2 liters nasal cannula. GENERAL: Patient is agitated. She is in moderate distress secondary to abdominal discomfort. HEENT: Normocephalic, atraumatic. Sclerae are white, conjunctivae pink. Oral mucosa is moist without lesions. LUNGS: Decent air entry. Dependent crackles are present. No prolonged expiratory phase is appreciated. HEART: Normal rate, regular. ABDOMEN: It is distended and firm. There is no rebound or guarding present. That being said, bowel sounds are hypoactive. GENITOURINARY: Husain catheter in place. NEUROLOGIC: Grossly nonfocal. LABORATORY DATA: WBC up trending to 16.7, hemoglobin 9.0, platelets 234,000. A pH 7.35, pCO2 of 41, pO2 of 57. Creatinine 1.99 and up trending. Phosphorus and magnesium fall within the normal limits. B12 and folate are normal. TSH falls within normal limits. Ammonia is also normal. Liver function studies are unremarkable. Urinalysis is unremarkable. Urine cultures negative to date. IMAGING: CT of the brain demonstrates no acute intracranial abnormality. CT of the chest, abdomen, and pelvis demonstrates minimal pleural effusions with associated atelectasis and possible consolidation. There is massive distension of the GI tract. ASSESSMENT: 1. Acute hypoxic respiratory failure. 2. Bilateral pleural effusions, small. 3. Healthcare-associated pneumonia, likely secondary to overt aspiration, possible. 4. Atelectasis of the bilateral lower lobes. 5. Ileus versus mechanical bowel obstruction. 6. Postop day #8 following laminectomy. DISCUSSION AND PLAN: I will give the patient a liter of fluid. Clinically, she is dry. We placed an NG tube and evacuate her GI contents if possible. Hopefully, this will provide her with significant relief. She will remain in the ICU for the next 24 hours. GI consultation has already been placed and is recommending a general surgical consultation. Pulmonary Critical Care will follow. 70 minutes have been devoted to this patient in various activities. I personally reviewed all imaging studies and laboratory data noted within this document. For fifty percent of this time, I was interacting with the patient at the bedside or coordinating care with the care team. For the remainder of the time I was immediately available to the patient in the hospital unit. KRISTEN
[2018-02-02] MEDS ORDERED: Propofol 1,000 MG/100 ML VIAL IV ONE (12:26)
--- NOTE | 2018-02-02 12:29 | CON ---
DATE OF CONSULTATION: 02/02/2018 HISTORY OF PRESENT ILLNESS: Patient is an 83-year-old -Burmese female, who, on 01/24/2018, u nderwent a multilevel lumbar stenosis and was in the hospital noting a decrease in mental function. She adds nothing to history of present illness. She did undergo a CT of the abdomen and pelvis and c hest, which shows mechanical bowel obstruction with prominent dilatation of the small bowel, stomach, and even fluid up into the esophagus. Bilateral pleural effusions are noted, moderate volume. Pulm onary parenchyma consolidation is noted. Abdominal x-ray done on 02/01/2018 shows a single spine abd omen and was inadequate for evaluation. There was some mildly dilated loop of small bowel. PAST MEDICAL HISTORY: Significant for a DVT, hypertension, osteopenia, peripheral vascular disease, hyperlipidemia, diabetes mellitus, kidney insufficiency, coronary artery disease, cardiomyopathy. PAST SURGICAL HISTORY: Includes an appendectomy, hysterectomy, neck surgery, coronary artery bypass, hemorrhoidectomy, carotid endarterectomy, pacemaker, and defibrillator placement. SOCIAL HISTORY: She does not smoke or drink. FAMILY HISTORY: Negative for GI or liver disease. ALLERGIES: MOTRIN. HOME MEDICATIONS: Include fish oil 1 cap p.o. b.i.d., aspirin 81 mg p.o. daily, metformin 500 mg p.o . b.i.d., hydralazine 100 mg p.o. t.i.d., CoQ10 100 mg p.o. q.a.m., Lasix 20 mg p.o. daily, folic aci d 1 mg p.o. q.a.m., ferrous sulfate 325 mg p.o. q.a.m., Cymbalta 30 mg p.o. b.i.d., vitamin B12 1000 mcg p.o. q.a.m., Zyrtec 10 mg p.o. q.a.m., carvedilol 25 mg p.o. b.i.d. Align 4 mg p.o. q.a.m., benaz epril 40 mg p.o. q.a.m., atorvastatin 20 mg p.o. at bedtime, allopurinol 300 mg p.o. q.a.m. REVIEW OF SYSTEMS: Unobtainable. PHYSICAL EXAMINATION: GENERAL: Shows an ill-appearing black female, writhing in pain and unable to answer any questions. VITAL SIGNS: Temperature 97.5, pulse is 95, blood pressure 92/63, respiratory rate 32. HEENT: Unremarkable. NECK: Supple. CHEST: Clear. CARDIOVASCULAR: Regular rate and rhythm. ABDOMEN: Soft, tender diffusely, protuberant without rebound or guarding. Bowel sounds are present and normoactive. RECTAL: Deferred. EXTREMITIES: Normal. NEUROLOGIC: Nonfocal. LABORATORY DATA: Shows a white blood cell count of 16.7, hemoglobin of 9, hematocrit of 27.5. Fran ia is 13. Glucose is 227, BUN 55, creatinine 1.99. Normal LFTs on 01/30/2018. ASSESSMENT: 1. Altered mental status. 2. Small-bowel obstruction. 3. Status post lumbar surgery. 4. Coronary artery disease. 5. Renal insufficiency. 6. Cardiomyopathy. RECOMMENDATIONS: 1. NG to suction. 2. Surgical opinion.
[2018-02-02] MEDS ORDERED: Norepinephrine 8 MG/0.9% NS 250 ML ONE (12:51)
[2018-02-02] MEDS ORDERED: Norepinephrine 8 MG/0.9% NS 250 ML IVPB PRN (13:03)
--- NOTE | 2018-02-02 14:28 | RAD ---
AP VIEW OF THE CHEST: COMPARISON: Prior exam dated 01/30/18. IMPRESSION: There is persistent cardiomegaly, worsening pulmonary vascular congestion, and perihilar airspace [place]. There is a tiny left and small right pleural effusion. The patient has been intervally intuba hill with a gastric catheter projecting beyond the field of view but below the left hemidiaphragm. Th ere is a right IJ central venous catheter now projecting in the region of the SVC. Dual-lead pacemak er is unchanged. IMPRESSION: 1. Persistent cardiomegaly with worsening pulmonary vascular congestion and perihilar airspace o pacity is suspicious for edema. There are small bilateral pleural effusions. 2. Interval intubation with gastric catheter placement and placement of a right subclavian central v enous catheter. Tubes and lines project in the expected position. Gastric catheter projects below t he level of the hemidiaphragm beyond the field of view. POS: [facility]
[2018-02-02 14:30] LABS: ALV-art Gradient 387.455 (0-20); Actual Bicarbonate (HCO3a) 20.3 mEq/L (22-28); Base Excess (BEa) -4.7 mEq/L (-2.0 to +3.0); CO2 Tension 37.1 mmHg (35.0-45.0); Calcium, Ionized 1.1 mmol/L (1.12-1.30); Hemoglobin (Hb) 8.9 g/dL (12.0-16.0); O2 Tension (PaO2) 72.4 mmHg (> 60.0); Puncture Site LRA; pH, Arterial 7.36 (7.35-7.45)
[2018-02-02] MEDS: Folic Acid 1 MG TAB PO SCH (16:49)
[2018-02-02] MEDS: Cyanocobalamin (Vitamin B-12) 1,000 MCG TAB PO SCH (16:49)
[2018-02-02] MEDS: Saccharomyces boulardii 250 MG CAP PO SCH (16:50)
[2018-02-02] MEDS: Loratadine 10 MG TAB PO SCH (16:50)
[2018-02-02] MEDS: Carvedilol 6.25 MG TAB PO SCH (16:53)
[2018-02-02] MEDS: Dextrose 5 %-0.45 % NaCl 1,000 ML IV SCH (16:56)
[2018-02-02] MEDS ORDERED: Carvedilol 3.125 MG TAB PO SCH (17:00)
--- NOTE | 2018-02-02 17:32 | PDOC.PN ---
- Subjective Encounter Start Date: 02/02/18 Encounter Start Time: 13:00 Patient seen and examined for med mngt. s/p code blue after a large emesis. Intubated on Vent. On low dose pressors. Remains confused. - Objective MAR Reviewed: Yes Vital Signs & Weight: Vital Signs (12 hours) Temp Pulse Resp BP BP Pulse Ox 02/02/18 16:53 116/46 L 02/02/18 16:00 19 02/02/18 14:23 80 19 99 02/02/18 14:15 81 116/46 L 02/02/18 13:03 94 L 02/02/18 10:40 98 23 H 97 02/02/18 09:58 97.5 F L 98 23 H 94 L 02/02/18 08:39 97.8 F 88 18 103/56 L 100 02/02/18 06:46 90 16 Weight Weight 130 lb Most Recent Monitor Data Heart Rate from ECG 91 NIBP 111/43 NIBP BP-Mean 67 Respiration from ECG 19 SpO2 92 I&O: 02/01/18 02/02/18 02/03/18 06:59 06:59 06:59 Intake Total 1020 2160 Output Total 200 1000 170 Balance 820 1160 -170 Result Diagrams: 02/03/18 05:15 02/03/18 05:15 Additional Labs: Accuchecks 02/02/18 02/02/18 02/02/18 14:38 09:19 05:58 POC Glucose 176 H 150 H 227 H 02/01/18 20:11 POC Glucose 215 H Radiology Reviewed by me: Yes (CT - bowel obstruction, Pneumonia, CHF) EKG Reviewed by me: Yes (Tele paced) Phys Exam - Physical Examination Intubated on Vent Respiratory: no wheezing Coarse BS B/L with bibasilar rales, On Vent Cardiovascular: RRR, no rub no heaves/pulsation Gastrointestinal: positive bowel sounds distended, firm, No guarding or rigidity Musculoskeletal: no edema Neuro/Pysch - Sedated on Vent Dx/Plan - Plan DVT proph w/SCDs IMPRESSION: 1. Toxic Metabolic Encephalopathy - multifactorial. 2. Acute hypoxic respiratory failure on Mech Vent 3. Bowel obstruction s/p NG tube 4. YOVANA on CKD 2 5. Acute on chronic systolic/diastolic HF - improving 6. HCAP 7. Elevated troponins due to CHF 8. DM2 on sliding scale PLAN: Cefepime changed to Zosyn Cont Mech Vent with pressors as tolerated Family updated Gentle IV hydration PT/OT when mentation improves AM labs Cont other meds as below Coreg and Hydralazine on hold GI and Surg consult Review of Systems - Review of Systems Other: Cannot obtain due to current mentation - Medications/Allergies Allergies/Adverse Reactions: Allergies Allergy/AdvReac Type Severity Reaction Status Date / Time ibuprofen [From Motrin] AdvReac Mild Nausea Verified 01/20/18 12:18 Medications: Current Medications Acetaminophen (Tylenol) 650 mg PO Q4H PRN PRN Reason: Headache/Fever or Pain Last Admin: 02/01/18 17:58 Dose: 650 mg Albuterol/Ipratropium (Duoneb) 3 ml NEB Q4H PRN PRN Reason: SOB &/or Wheezing Albuterol/Ipratropium (Duoneb) 3 ml NEB [id number] [facility] Last Admin: 02/02/18 14:23 Dose: 3 ml Cyanocobalamin (Vitamin B-12) 1,000 mcg PO QAM [facility] Last Admin: 02/02/18 16:49 Dose: Not Given Dextrose/Water (Dextrose 50%) 25 gm IVP PRN PRN PRN Reason: HYPOGLYCEMIA PROTOCOL Famotidine (Pepcid) 20 mg SLOW IVP QPM [facility] Folic Acid (Folvite) 1 mg PO QAM [facility] Last Admin: 02/02/18 16:49 Dose: Not Given Glucagon (Glucagon) 1 mg IM PRN PRN PRN Reason: HYPOGLYCEMIA PROTOCOL Hydralazine HCl (Apresoline) 10 mg SLOW IVP Q4H PRN PRN Reason: SBP Greater Than 180 Dextrose/Water (D5w) 1,000 mls @ 0 mls/hr IV .Q0M PRN; As Directed PRN Reason: Hypoglycemia Dextrose/Sodium Chloride (D5 1/2 Ns) 1,000 mls @ 75 mls/hr IV .[id number] [facility] Last Admin: 02/02/18 16:56 Dose: Not Given Piperacillin Sod/Tazobactam (Sod 2.25 gm/ Sodium Chloride) 100 mls @ 200 mls/ hr IVPB Q6HR [facility]IQUE Norepinephrine Bitartrate (Levophed) 250 mls @ 0 mls/hr IVPB PRN PRN; Protocol ; Titrate PRN Reason: To maintain MAP > 65 Insulin Human Lispro (Humalog) 0 units SC .MILD SLIDING SCALE PRN; Protocol PRN Reason: MILD SLIDING SCALE Last Admin: 01/31/18 11:35 Dose: 2 unit Insulin Human Lispro (Humalog) 0 units SC .BEDTIME SLIDING SC PRN PRN Reason: Bedtime Correctional Scale Loratadine (Claritin) [facility] Last Admin: 02/02/18 16:50 Dose: Not Given Miscellaneous Medication (Pharmacy To Dose) 1 each IVPB PRN PRN PRN Reason: Pharmacy to dose Saccharomyces Boulardii (Florastor) 250 mg PO DAILY [facility] Last Admin: 02/02/18 16:50 Dose: Not Given Simethicone (Mylicon Chewable) 80 mg PO PCHS PRN PRN Reason: Gas Pain Sodium Biphosphate/Sodium Phosphate (Fleet Enema) 133 ml [place] DAILY PRN PRN Reason: Constipation Sodium Chloride (Flush - Normal Saline) 10 ml IVF PRN PRN PRN Reason: Saline Flush
[2018-02-02] MEDS ORDERED: PROPOFOL 200 MG/20 ML VIAL ONE (18:31)
[2018-02-02] MEDS ORDERED: EPINEPHrine 1 MG/10 ML Abboject SYRINGE ONE (18:37)
[2018-02-02] MEDS: Piperacillin/Tazobactam 2.25 GM in Sodium Chloride 0.9% 100 ML IVPB SCH (19:58)
[2018-02-02] MEDS: Famotidine/PF 20 mg/2ml Vial SLOW IVP SCH (20:03)
[2018-02-02] MEDS ORDERED: Acetaminophen 650 MG Suppository PR PRN (21:09)
[2018-02-02] MEDS ORDERED: Hydrocortisone Sod Succ/PF 100 mg/2 ml Vial IVP SCH (21:15)
[2018-02-02] MEDS: Vasopressin 40 UNIT, Admixture Fee 1 EACH in Sodium Chloride 0.9% 100 ML IV SCH (22:00)
[2018-02-03] MEDS: Piperacillin/Tazobactam 2.25 GM in Sodium Chloride 0.9% 100 ML IVPB SCH ×5 (00:22→23:17)
--- NOTE | 2018-02-03 00:46 | OP ---
DATE OF PROCEDURE: 02/02/2018 SERVICE: Pulmonary Medicine. PROCEDURE: Emergent endotracheal intubation. CONSENT: This was implied secondary to emergent condition. STAFF PHYSICIAN: Rony Bermudez M.D. MEDICATIONS USED: Rocuronium 50 mg IV x1. PREPROCEDURE DIAGNOSES: 1. Acute hypoxic respiratory failure. 2. Pulseless electrical activity arrest. POSTPROCEDURE DIAGNOSES: 1. Acute hypoxic respiratory failure. 2. Pulseless electrical activity arrest. DESCRIPTION OF PROCEDURE: Vital sign monitoring was accomplished by noninvasive hemodynamic monitori ng, pulse oximetry, and telemetry. In the supine position, the patient was preoxygenated with bag va lve mask ventilation. Saturations were unknown. A GlideScope was inserted through the posterior samuel pharynx offering a grade II view of the laryngeal structures. An endotracheal tube was visualized pa ssing through the vocal cords. Placement was confirmed by condensation in the endotracheal tube and by axillary chest auscultation. Endotracheal tube was secured at 21 cm, measured at the teeth. She was placed on mechanical ventilation with good return of volumes. Post-procedure x-ray revealed dece nt location for the endotracheal tube within the trachea. ESTIMATED BLOOD LOSS: None. COMPLICATIONS: None.
--- NOTE | 2018-02-03 00:49 | OP ---
DATE OF PROCEDURE: 02/02/2018 SERVICE: Pulmonary Medicine. PROCEDURE: Left-sided triple lumen IJ central venous catheter placement under ultrasound guidance. CONSENT: This was implied secondary to emergent situation. PHYSICIAN: Rony Bermudez M.D. MEDICATIONS: None. PREOPERATIVE DIAGNOSES: 1. Pulseless electrical activity arrest. 2. Septic shock. POSTPROCEDURE DIAGNOSES: 1. Pulseless electrical activity arrest. 2. Septic shock. DESCRIPTION OF PROCEDURE: Vital sign monitoring was accomplished by noninvasive hemodynamic monitori ng, pulse oximetry, and telemetry. A timeout was performed and the patient was positively identified using name and date of . The procedure site was marked. The patient was placed in the supine position and the right neck was prepped and draped in sterile fashion. The course of the IJ vein was mapped with ultrasound. The cannulation needle was placed in the IJ under direct ultrasound observa tion with return of dark red, nonpulsatile blood on the first attempt. A J-shaped guidewire was thre aded through the cannulation needle without difficulty. A small incision was made. The dilator and triple-lumen central venous catheter were serially threaded over the guidewire. The catheter was sec ured at the skin at 17 cm. All 3 ports withdrew and flushed without difficulty. A sterile dressing was applied. Post procedure x-ray demonstrated decent location for the tip of the catheter. ESTIMATED BLOOD LOSS: 5 mL. COMPLICATIONS: None.
--- NOTE | 2018-02-03 01:38 | OP ---
DATE OF SERVICE: 02/02/2018 PROCEDURE: Fiberoptic bronchoscopy with: 1. Visual airway inspection. 2. Bronchial wash from the bilateral lung agarwal. 3. Endobronchial biopsy from the right middle lobe. PREPROCEDURE DIAGNOSES: 1. Massive aspiration pneumonitis. 2. Acute hypoxic respiratory failure. POSTPROCEDURE DIAGNOSES: 1. Massive aspiration pneumonitis. 2. Acute hypoxic respiratory failure. PROCEDURE LAP MAKER: Rony Bermudez M.D. MEDICATIONS USED: None. DESCRIPTION OF PROCEDURE: A timeout was performed, identifying the correct procedure and patient wit h name and date of . A diagnostic fiberoptic bronchoscope was introduced through the existing 7 .5 [place] endotracheal tube. The bronchoscope was advanced into the trachea where a tracheobronchial tree inspection was carried out. There was copious amount of brown secretions throughout bilateral lung agarwal, consistent with the aspirated material coming from her stomach. Once this was vigorousl y suctioned, there was clear identification of the right upper lobe, right middle lobe, right lower l obe, left upper lobe, and lingula, and left lower lobe. I thought there was an aspirated foreign bod y lodged in the right middle lobe. I attempted to suction it away, but it would not come. Ultimatel y, biopsy forceps were used to try to pull the thing out. It was extraordinarily hard, enlarged in t he right middle lobe. The biopsy forceps essentially bounced off of this thing because it was so skyla d. I did not get a significant tissue sample, but small pieces of it were obtained. A wash was obta ined from bilateral lung agarwal. Hemostasis was verified and the bronchoscope was subsequently remov ed from the patient. FINDINGS: 1. Extensive brown secretions were present throughout bilateral lung agarwal. 2. Endobronchial lesion was present in the right middle lobe bronchus at the bifurcation of the late ral and medial segment. SPECIMENS OBTAINED: 1. Bronchial wash for Gram stain and culture. 2. Pathology on the right middle lobe lesion. COMPLICATIONS: None. ESTIMATED BLOOD LOSS: None. FLUOROSCOPY TIME: None. DISPOSITION: The patient will remain in the ICU to recover on mechanical ventilation.
[2018-02-03] MEDS: Dextrose 5 %-0.45 % NaCl 1,000 ML IV SCH ×3 (02:51→19:22)
[2018-02-03] MEDS: Hydrocortisone Sod Succ/PF 100 mg/2 ml Vial IVP SCH ×4 (02:52→20:41)
[2018-02-03 05:50] LABS: Lactic Acid 3.4 mmol/L (0.5-2.2)
[2018-02-03 06:09] LABS: Band 50 % (5-11); Hemoglobin 7.9 g/dL (12.0-16.0); Lymphocytes 9 % (21-51); MDiff Complete? YES; Mean Corpuscular HGB CONC 32.7 g/dL (32.0-36.0); Mean Corpuscular Hemoglobin 32.6 pg (27.0-31.0); Mean Corpuscular Volume 99.7 fL (78.0-98.0); Mean Platelet Volume 8.5 fL (7.4-10.4); Metamyelocyte 10 % (0-0); Monocytes 1 % (0-10); Neutrophil 30 % (42-75); PLT Morphology Comment Appears Adequate; Platelet Count 167 thou/uL (130-400); RBC Distribution Width 15.1 % (11.5-14.5); Red Blood Cell (RBC) Count 2.42 mill/uL (4.20-5.40); Vacuoles SLIGHT; White Blood Cell (WBC) Count 22.9 thou/uL (4.8-10.8)
[2018-02-03 06:46] LABS: ALT (SGPT) 51 U/L (8-55); AST (SGOT) 68 U/L (5-34); Albumin 2.4 g/dL (3.4-4.8); Alkaline Phosphatase 72 U/L (40-150); Anion Gap 16 mmol/L (10-20); BUN (Urea Nitrogen) 57 mg/dL (9.8-20.1); Calc. Creatinine Clearance 17 mL/min (70-130); Calcium 7.7 mg/dL (7.8-10.44); Carbon Dioxide 21 mmol/L (23-31); Chloride 106 mmol/L (98-107); Estimated GFR-MDRD 24; Globulin 1.9 g/dL (2.4-3.5); Glucose 253 mg/dL (83-110); Magnesium 1.8 mg/dL (1.6-2.6); Phosphorus 5.6 mg/dL (2.3-4.7); Potassium 4.5 mmol/L (3.5-5.1); Protein, Total 4.3 g/dL (6.0-8.3); Sodium 138 mmol/L (136-145)
--- NOTE | 2018-02-03 06:57 | PRG ---
DATE OF SERVICE: 02/03/2018 I saw Ms. Gonzalez in the ICU this morning and I caught up events over the weekend. Nursing reports that she is slightly more alert and interactive this morning that she has been yesterday and over the wee kend. She is grimacing and she is making eye contact. She is making motions as though she wants the breathing tube out. She is communicating her pain even with the ventilator in place. I looked at h er vital signs and I see at T-max of 99.5 degrees Fahrenheit, her blood pressures have been in the 90 s-130s. On examination Ms. Gonzalez is easily aroused. She grimaces, she opens her eyes. She nods, she moves all 4 extremities quite purposefully. I looked at her incision, there is an occlusive dressin g from yesterday morning with a small piece of Telfa, it has a scant amount of drainage, but it is al most completely dry. The rest of the incision looks good. There is no warmth or swelling. I do not see any obvious new weakness in the lower extremities. Events from to today include Ms. Gonzalez is having slightly decreased oxygen saturations on her surgical floor and they moved to telemetry monitoring. She was felt to have some degree of dehydrat ion and IV fluid was restarted. She had developed symptomatic heart failure and complained of back p ain for which narcotics were given. She was sedated to the point there was aspiration and developed a severe aspiration pneumonitis and now she is intubated. For the entire progression of this, her lumbar incision continues to look better and better. I do be lieve this is a postoperative issue. We will make sure that she continues on antimicrobial coverage if there is any drainage at all from the incision, but I think the aspiration event prompted broad sp ectrum antibiotic coverage. Neurosurgery team will continue to follow. I think Ms. Riddhi Gonzalez [facility] Should she survive this downturn and make a good recovery with the lungs.
[2018-02-03] MEDS ORDERED: DISCONTINUE PREVIOUS NARCOTIC PAIN MEDICATIONS AND BENZODIAZEPINES FS SCH (07:13)
[2018-02-03] MEDS ORDERED: Propofol BOLUS 1,000 MG/100 ML VIAL IV PRN (07:13)
[2018-02-03] MEDS ORDERED: Propofol 1,000 MG/100 ML VIAL IV PRN (07:13)
[2018-02-03] MEDS ORDERED: Lorazepam 2 MG/ML VIAL SLOW IVP PRN (07:13)
[2018-02-03] MEDS ORDERED: fentaNYL Citrate/PF 2,000 MCG in Sodium Chloride 0.9% 60 ML IV SCH (07:13)
--- NOTE | 2018-02-03 09:00 | RAD ---
AP VIEW OF THE CHEST: INDICATION: Daily CCU examination. FINDINGS: There is worsening opacification of the right hemithorax. Tubes and lines are similar. Cardiomegaly persists. Pulmonary vascular congestion is similar. Small bilateral pleural effusions are similar. No pneumothorax is evident. IMPRESSION: 1. Worsening parenchymal opacities of the right lung may reflect worsening edema, hemorrhage, or pne umonia. 2. Component of mild congestive heart failure is similar. No pneumothorax is evident. 3. Tubes and lines are stable. POS: [facility]
[2018-02-03] MEDS: HumaLOG 300 UNITS/3 ML VIAL SC PRN ×4 (09:19→21:44)
--- NOTE | 2018-02-03 10:31 | PRG ---
DATE OF SERVICE: 02/03/2018 SUBJECTIVE: The patient is on the ventilator. Events from yesterday are noted. PHYSICAL EXAMINATION: VITAL SIGNS: Blood pressure 123/59, pulse 84, respiratory rate 15, temperature 99.1. HEENT: Significant for orotracheal tube and oral gastric tube. CHEST: Clear. CARDIOVASCULAR: Regular rate and rhythm. ABDOMEN: Soft, much less distended than yesterday. Bowel sounds are present. RECTAL: Deferred. LABORATORY DATA: Shows a white blood cell count of 22.9, hemoglobin 7.9, hematocrit 24.1. Chemistri es: CO2 21, BUN 57, creatinine 2.35, glucose 253. ASSESSMENT: 1. Small-bowel obstruction. 2. Altered mental status. 3. Status post lumbar surgery. 4. Coronary artery disease. 5. Cardiomyopathy. 6. Severe aspiration pneumonitis. RECOMMENDATIONS: 1. Continue NG to suction. 2. We will defer treatment and/or surgery to General Surgery. 3. We will sign off.
[2018-02-03] MEDS: Vasopressin 40 UNIT, Admixture Fee 1 EACH in Sodium Chloride 0.9% 100 ML IV SCH (12:00)
[2018-02-03] MEDS: Saccharomyces boulardii 250 MG CAP PO SCH (12:29)
[2018-02-03] MEDS: Albumin 25% 25 GM/100 ML BOT IVPB SCH ×3 (13:17→23:01)
--- NOTE | 2018-02-03 19:08 | PRG ---
DATE OF SERVICE: 02/03/2018 Ms. Gonzalez remains mechanically ventilated. She is sedated until with the nurses when sedation is held. She follows commands. PHYSICAL EXAMINATION: VITAL SIGNS: Blood pressure 100/49, heart rate 80, respiratory rate 15, oximetry is 97. LUNGS: Clear anteriorly. Few rhonchi on the right. CARDIOVASCULAR: Regular rhythm. S1 and S2 are normal. ABDOMEN: Soft and distended. EXTREMITIES: With asymmetry. INTAKE AND OUTPUT: Negative 3023 with 4500 out being reported from gastric drainage. She is still on vasopressin and Levophed. I have increased her IV fluids and added salt-poor albumin. LABORATORY DATA: White count is 22.9, hemoglobin 7.9, platelets 167. Sodium 138, potassium 4.5, chloride 106, bicarbonate 21, BUN 57, creatinine 2.35, which is up from 1.[address] Bermudez's bronchoscopy note. IMPRESSION: 1. Status post laminectomy. 2. Status post emergent intubation after massive emesis yesterday. 3. ? Broncholithiasis. 4. Pneumonia involving almost the entire right lung, most likely secondary to aspiration. 5. Small-bowel obstruction, being followed by Gastroenterology and surgery. 6. History of cardiomyopathy. 7. History of deep venous thrombosis in the past. 8. Peripheral vascular disease. 9. Diabetes. 10. Progressive renal insufficiency. 11. History of coronary artery bypass grafting as well as carotid endarterectomy in the past. 12. Status post pacemaker defibrillator. PLAN: Continue with volume resuscitation, attempts for weaning from pressors and NG suction. Decisions regarding surgery will be made by Gastroenterology and General Surgery. critical care time 35 minutes. KRISTEN
[2018-02-03] MEDS: Famotidine/PF 20 mg/2ml Vial SLOW IVP SCH (20:40)
--- NOTE | 2018-02-03 22:51 | PDOC.PN ---
- Subjective Encounter Start Date: 02/03/18 Encounter Start Time: 14:30 -: non-verbal Patient seen and examined for med mngt. On mech vent. - Objective MAR Reviewed: Yes Vital Signs & Weight: Vital Signs (12 hours) Temp Pulse Resp BP Pulse Ox 02/03/18 22:11 85 134/60 02/03/18 22:00 14 02/03/18 20:00 97.9 F 14 02/03/18 18:19 76 99/47 L 02/03/18 18:00 15 02/03/18 16:00 97.9 F 18 02/03/18 14:42 81 100/49 L 02/03/18 14:41 81 15 97 02/03/18 14:00 17 02/03/18 12:00 98.2 F 18 Weight Admit Weight 128 lb 6.391 oz Weight 131 lb 13.383 oz Most Recent Monitor Data Heart Rate from ECG 85 NIBP 134/60 NIBP BP-Mean 84 Respiration from ECG 14 SpO2 98 I&O: 02/02/18 02/03/18 02/04/18 06:59 06:59 06:59 Intake Total 2160 1806 1511 Output Total 1000 4830 308 Balance 1160 -3024 1203 Result Diagrams: 02/04/18 04:05 02/04/18 04:05 Additional Labs: Accuchecks 02/03/18 02/02/18 00:44 23:11 POC Glucose 193 H 126 H Radiology Reviewed by me: Yes (Rt sided infiltrate) EKG Reviewed by me: Yes (Tele SR) Phys Exam - Physical Examination Pt on mech Vent Respiratory: no wheezing Rt sided rales/rhonchi Cardiovascular: RRR, no rub Gastrointestinal: soft, positive bowel sounds Musculoskeletal: no edema Dx/Plan - Plan plan discussed w/ family (grand daughter at bedside), holman catheter, continue antibiotics, respiratory therapy, DVT proph w/SCDs IMPRESSION: 1. Acute hypoxic respiratory failure - on Mech Vent 2. Severe sepsis with acute organ dysfunction /Septic shock on pressors due to Aspiration pneumonia (s/p emergent intubation after massive emesis while NG was attempted) 3. Bowel obstruction s/p NG tube 4. YOVANA on CKD 2/Lactic acidosis 5. Acute on chronic systolic/diastolic HF 6. Toxic Metabolic Encephalopathy - multifactorial. 7. Elevated troponins due to CHF 8. DM2 on sliding scale PLAN: Cont Zosyn Cont Mech Vent with pressors as tolerated AM labs Cont other meds as below Review of Systems - Review of Systems Other: Cannot be obtained due to current mentation - Medications/Allergies Allergies/Adverse Reactions: Allergies Allergy/AdvReac Type Severity Reaction Status Date / Time ibuprofen [From Motrin] AdvReac Mild Nausea Verified 01/20/18 12:18 Medications: Current Medications Acetaminophen (Tylenol) 650 mg AL Q4H PRN PRN Reason: Headache/Fever or Pain Last Admin: 02/03/18 05:12 Dose: 650 mg Albumin Human (Albumin 25%) 25 gm IVPB Q6H [facility] Stop: 02/05/18 11:31 Last Admin: 02/03/18 16:33 Dose: 25 gm Albuterol/Ipratropium (Duoneb) 3 ml NEB Q4H PRN PRN Reason: SOB &/or Wheezing Albuterol/Ipratropium (Duoneb) 3 ml NEB [id number] MONIQUE Last Admin: 02/03/18 22:10 Dose: 3 ml Dextrose/Water (Dextrose 50%) 25 gm IVP PRN PRN PRN Reason: HYPOGLYCEMIA PROTOCOL Famotidine (Pepcid) 20 mg SLOW IVP QPM [facility] Last Admin: 02/03/18 20:40 Dose: 20 mg Glucagon (Glucagon) 1 mg IM PRN PRN PRN Reason: HYPOGLYCEMIA PROTOCOL Hydralazine HCl (Apresoline) 10 mg SLOW IVP Q4H PRN PRN Reason: SBP Greater Than 180 Hydrocortisone Sodium Succinate (Solu-Cortef) 50 mg IVP 0300,0900,1500,2100 [facility] Last Admin: 02/03/18 20:41 Dose: 50 mg Dextrose/Water (D5w) 1,000 mls @ 0 mls/hr IV .Q0M PRN; As Directed PRN Reason: Hypoglycemia Piperacillin Sod/Tazobactam (Sod 2.25 gm/ Sodium Chloride) 100 mls @ 200 mls/ hr IVPB Q6HR [facility] Last Admin: 02/03/18 17:36 Dose: 100 mls Vasopressin 40 unit/Miscellaneous Medication 1 each/ Sodium Chloride 102 mls @ 0 mls/hr IV INF MONIQUE; As Directed PRN Reason: Protocol Last Admin: 02/03/18 12:00 Dose: 102 mls Norepinephrine Bitartrate 16 (mg/ Dextrose/Water) 266 mls @ 0 mls/hr IVPB PRN PRN; Protocol; Titrate PRN Reason: To maintain MAP > 65 Last Admin: 02/03/18 08:15 Dose: 266 mls Fentanyl Citrate 2,000 mcg/ (Sodium Chloride) 100 mls @ 0 mls/hr IV INF [facility]; Per Protocol PRN Reason: Protocol Stop: 03/05/18 07:13 Last Admin: 02/03/18 07:29 Dose: 100 mls Dextrose/Sodium Chloride (D5 1/2 Ns) 1,000 mls @ 175 mls/hr IV .Q5H43M [facility] Last Admin: 02/03/18 19:22 Dose: 1,000 mls Insulin Human Lispro (Humalog) 0 units SC .MILD SLIDING SCALE PRN; Protocol PRN Reason: MILD SLIDING SCALE Last Admin: 02/03/18 21:44 Dose: 6 unit Insulin Human Lispro (Humalog) 0 units SC .BEDTIME SLIDING SC PRN PRN Reason: Bedtime Correctional Scale Lorazepam (Ativan) 2 mg SLOW IVP Q1H PRN PRN Reason: Breakthrough agitation Stop: 03/05/18 07:13 Miscellaneous Medication (Pharmacy To Dose) 1 each IVPB PRN PRN PRN Reason: Pharmacy to dose Morphine Sulfate (Morphine Sulfate) 2 mg SLOW IVP Q1H PRN PRN Reason: BREAKTHROUGH PAIN/AGITATION Stop: 03/05/18 07:13 Discontinue Previous Narcotic Pain Medications And Benzodiazepines 1 each FS .ONE [facility] Stop: 03/05/18 07:13 Propofol (Diprivan) 1,000 mg IV INF PRN; Protocol PRN Reason: TO ACHIEVE GOAL RASS Stop: 03/05/18 07:13 Propofol (Diprivan Bolus) 20 mg IV Q5MIN PRN PRN Reason: BREAKTHROUGH AGITATION Stop: 03/05/18 07:13 Saccharomyces Boulardii (Florastor) 250 mg PO DAILY [facility] Last Admin: 02/03/18 12:29 Dose: 250 mg Simethicone (Mylicon Chewable) 80 mg PO PCHS PRN PRN Reason: Gas Pain Sodium Biphosphate/Sodium Phosphate (Fleet Enema) 133 ml AL DAILY PRN PRN Reason: Constipation Sodium Chloride (Flush - Normal Saline) 10 ml IVF PRN PRN PRN Reason: Saline Flush
[2018-02-04] MEDS: HumaLOG 300 UNITS/3 ML VIAL SC PRN ×6 (01:41→21:19)
[2018-02-04] MEDS: Dextrose 5 %-0.45 % NaCl 1,000 ML IV SCH ×4 (01:41→21:08)
--- NOTE | 2018-02-04 02:17 | CON ---
DATE OF ADMISSION: 01/24/2018 DATE OF CONSULTATION: 02/03/2018 This patient was discussed with Dr. Bermudez regarding her small-bowel obstruction. Decision was made to hold off on any intervention at this time due to her being unstable and onto pressors. Nurse practitioner student Greta Arrington dictating for Dr. Edgardo Mejia.
[2018-02-04] MEDS: Hydrocortisone Sod Succ/PF 100 mg/2 ml Vial IVP SCH ×4 (03:59→21:09)
[2018-02-04] MEDS: Albumin 25% 25 GM/100 ML BOT IVPB SCH ×4 (04:33→23:56)
[2018-02-04 05:01] LABS: Lactic Acid 2.4 mmol/L (0.5-2.2)
[2018-02-04] MEDS: Piperacillin/Tazobactam 2.25 GM in Sodium Chloride 0.9% 100 ML IVPB SCH ×4 (05:15→23:57)
[2018-02-04 05:34] LABS: Anion Gap 14 mmol/L (10-20); BUN (Urea Nitrogen) 57 mg/dL (9.8-20.1); Calc. Creatinine Clearance 16 mL/min (70-130); Calcium 7.4 mg/dL (7.8-10.44); Carbon Dioxide 19 mmol/L (23-31); Chloride 106 mmol/L (98-107); Estimated GFR-MDRD 22; Glucose 343 mg/dL (83-110); Magnesium 2.1 mg/dL (1.6-2.6); Phosphorus 4.1 mg/dL (2.3-4.7); Potassium 3.9 mmol/L (3.5-5.1); Sodium 135 mmol/L (136-145)
[2018-02-04 06:17] LABS: Band 34 % (5-11); Hemoglobin 6.5 g/dL (12.0-16.0); Lymphocytes 12 % (21-51); MDiff Complete? YES; Mean Corpuscular HGB CONC 32.7 g/dL (32.0-36.0); Mean Corpuscular Hemoglobin 32.5 pg (27.0-31.0); Mean Corpuscular Volume 99.5 fL (78.0-98.0); Mean Platelet Volume 8.5 fL (7.4-10.4); Monocytes 2 % (0-10); Neutrophil 52 % (42-75); Platelet Count 133 thou/uL (130-400); RBC Distribution Width 15.1 % (11.5-14.5); Red Blood Cell (RBC) Count 2.01 mill/uL (4.20-5.40)
--- NOTE | 2018-02-04 10:11 | RAD ---
ABDOMEN ONE VIEW: HISTORY: Abdominal pain. Bowel obstruction. COMPARISON: 02/02/2018 FINDINGS: Nondilated gas filled loops of small bowel are present throughout the abdomen. Some gas is apparent within the rectum. A nasogastric tube now overlies the stomach. Prominent calcification over the ar terial structures. Postoperative and degenerative changes of the lumbar spine. Degenerative changes of the hips. IMPRESSION: 1. Interval decompression of the stomach and proximal bowel with nasogastric tube, currently a nonsp ecific bowel gas pattern. Gas within the rectum is apparent but was also visible on recent CT. 2. Atherosclerosis. POS: [facility]
--- NOTE | 2018-02-04 10:12 | RAD ---
CHEST ONE VIEW: History: Small bowel obstruction. Dyspnea. Follow up. Comparison: 02-03-18 FINDINGS: Cardiac silhouette is magnified and enlarged. Pulmonary vasculature remains engorged. Dense infiltrat e throughout the right lung and at the left base is similar to the previous study. Patient is slightl y rotated leftward. Lines and tubes are unchanged in position. No evidence of pneumothorax. IMPRESSION: Dense bilateral infiltrates, pulmonary vascular congestion, and other findings are stable. POS: [facility]
[2018-02-04] MEDS: Saccharomyces boulardii 250 MG CAP PO SCH (10:17)
--- NOTE | 2018-02-04 13:12 | PRG ---
DATE OF SERVICE: 02/04/2018 SUBJECTIVE: Riddhi Gonzalez is in her ICU room this morning. Yesterday, she is quite wide awake, complai bran of abdominal pain and was given some fentanyl. Urine output depends on the blood pressure in th e 120s to 130s, according to nursing. She is currently on Levophed and albumin drip. As I am seeing her this morning, her blood pressure is 136/52. Her T-max was 99.2 degrees other ramez ls looks stable. On examination, Ms. Gonzalez opens her eyes to voice. She is purposeful with 4 extremi ties, does not find any new motor or sensory deficits in lower extremities. Her lumbar incision has a new dressing on it. There is minimal drainage. I did look to Ms. Gonzalez's laboratory studies, her white count is up and her hemoglobin is 6.5. Ms. Gonzalez is having medical complications following her back surgery. She has some abdominal pain and the hemoglobin is dropping, NG output. We will make sure that she GI prophylaxis as nec essary and the GI team is likely to be called back to her case. From a neurosurgical perspective, she is making slow progress and would be a candidate for inpatient rehabilitation when her medical issues resolve.
[2018-02-04] MEDS ORDERED: MD-Gastroview 120 ML BOT ONE (14:58)
[2018-02-04 16:07] VITALS: BMI 24.6
--- NOTE | 2018-02-04 17:11 | RAD ---
SMALL BOWEL STUDY: 02/04/18 HISTORY: Rule out obstruction. COMPARISON: CT 02/02/18. FINDINGS: Contrast is given through the enteric tube. No significant contrast is seen extending to the large navneet wel by 6 hours. There is reflux of contrast through the GE junction to the esophagus at six hours, th erefore the patient needed to be suctioned due to aspiration risk. IMPRESSION: Findings suggesting high grade small bowel obstruction. The exam had to be ended at six hours due to patient's risk of aspiration. POS: [facility]
[2018-02-04] MEDS: Famotidine/PF 20 mg/2ml Vial SLOW IVP SCH (21:09)
--- NOTE | 2018-02-04 22:06 | PDOC.PN ---
- Subjective Encounter Start Date: 02/04/18 Encounter Start Time: 12:30 -: non-verbal Patient seen and examined for med mgnt. On [facility] Vent. No overnight events - Objective MAR Reviewed: Yes Vital Signs & Weight: Vital Signs (12 hours) Temp Pulse Resp BP Pulse Ox 02/04/18 20:00 97.7 F 13 02/04/18 18:33 77 120/53 L 02/04/18 18:00 13 02/04/18 16:00 97.5 F L 18 02/04/18 15:26 72 123/51 L 02/04/18 15:24 73 13 94 L 02/04/18 14:00 13 02/04/18 12:00 97.5 F L 13 02/04/18 10:30 71 145/75 H 02/04/18 10:29 72 13 99 Weight Admit Weight 128 lb 6.391 oz Weight 134 lb 11.239 oz Most Recent Monitor Data Heart Rate from ECG 73 NIBP 124/60 NIBP BP-Mean 83 Respiration from ECG 13 SpO2 98 I&O: 02/03/18 02/04/18 02/05/18 06:59 06:59 06:59 Intake Total 1806 3910 2514 Output Total 4830 701 793 Balance -3024 3209 1721 Result Diagrams: 02/04/18 04:05 02/04/18 04:05 Additional Labs: Accuchecks 02/04/18 02/04/18 02/04/18 16:37 12:39 09:26 POC Glucose 243 H 235 H 260 H 02/04/18 02/04/18 02/03/18 04:05 01:09 21:46 POC Glucose 348 H 379 H 381 H 02/03/18 02/03/18 02/03/18 16:28 13:16 09:11 POC Glucose 326 H 284 H 258 H Laboratory Tests 02/04/18 02/04/18 04:05 04:05 Band Neuts % (Manual) 34 H Lactic Acid 2.4 H Radiology Reviewed by me: Yes (CXR - infiltrate/congestion) EKG Reviewed by me: Yes (Tele paced) Phys Exam - Physical Examination On [facility] Vent Respiratory: no wheezing Rt sided rales with rhonchi Cardiovascular: RRR, no rub Gastrointestinal: soft, positive bowel sounds Musculoskeletal: no edema Dx/Plan - Plan DVT proph w/SCDs IMPRESSION: 1. Acute hypoxic respiratory failure - on Mech Vent 2. Severe sepsis with acute organ dysfunction /Septic shock on pressors due to Aspiration pneumonia (s/p emergent intubation after massive emesis while NG was attempted) 3. Small bowel obstruction s/p NG tube 4. YOVANA on CKD 2/Lactic acidosis 5. Acute on chronic systolic/diastolic HF 6. Toxic Metabolic Encephalopathy - multifactorial. 7. Elevated troponins due to CHF 8. DM2 on sliding scale PLAN: Cont Zosyn/Stress dose steroids/Pressors/IVF Cont Mech Vent AM labs Cont other meds as below Review of Systems - Review of Systems Other: Cannot obtain due to current mental status - Medications/Allergies Allergies/Adverse Reactions: Allergies Allergy/AdvReac Type Severity Reaction Status Date / Time ibuprofen [From Motrin] AdvReac Mild Nausea Verified 01/20/18 12:18 Medications: Current Medications Acetaminophen (Tylenol) 650 mg FL Q4H PRN PRN Reason: Headache/Fever or Pain Last Admin: 02/03/18 05:12 Dose: 650 mg Albumin Human (Albumin 25%) 25 gm IVPB Q6H [facility] Stop: 02/05/18 11:31 Last Admin: 02/04/18 18:20 Dose: 25 gm Albuterol/Ipratropium (Duoneb) 3 ml NEB Q4H PRN PRN Reason: SOB &/or Wheezing Albuterol/Ipratropium (Duoneb) 3 ml NEB [id number] [facility] Last Admin: 02/04/18 18:32 Dose: 3 ml Dextrose/Water (Dextrose 50%) 25 gm IVP PRN PRN PRN Reason: HYPOGLYCEMIA PROTOCOL Famotidine (Pepcid) 20 mg SLOW IVP QPM [facility] Last Admin: 02/04/18 21:09 Dose: 20 mg Glucagon (Glucagon) 1 mg IM PRN PRN PRN Reason: HYPOGLYCEMIA PROTOCOL Hydralazine HCl (Apresoline) 10 mg SLOW IVP Q4H PRN PRN Reason: SBP Greater Than 180 Hydrocortisone Sodium Succinate (Solu-Cortef) 50 mg IVP 0300,0900,1500,2100 [facility] Last Admin: 02/04/18 21:09 Dose: 50 mg Dextrose/Water (D5w) 1,000 mls @ 0 mls/hr IV .Q0M PRN; As Directed PRN Reason: Hypoglycemia Piperacillin Sod/Tazobactam (Sod 2.25 gm/ Sodium Chloride) 100 mls @ 200 mls/ hr IVPB Q6HR [facility] Last Admin: 02/04/18 18:21 Dose: 100 mls Vasopressin 40 unit/Miscellaneous Medication 1 each/ Sodium Chloride 102 mls @ 0 mls/hr IV INF [facility]; As Directed PRN Reason: Protocol Last Admin: 02/03/18 12:00 Dose: 102 mls Norepinephrine Bitartrate 16 (mg/ Dextrose/Water) 266 mls @ 0 mls/hr IVPB PRN PRN; Protocol; Titrate PRN Reason: To maintain MAP > 65 Last Admin: 02/04/18 12:42 Dose: 266 mls Fentanyl Citrate 2,000 mcg/ (Sodium Chloride) 100 mls @ 0 mls/hr IV INF [facility]; Per Protocol PRN Reason: Protocol Stop: 03/05/18 07:13 Last Admin: 02/03/18 07:29 Dose: 100 mls Dextrose/Sodium Chloride (D5 1/2 Ns) 1,000 mls @ 175 mls/hr IV .Q5H43M [facility] Last Admin: 02/04/18 21:08 Dose: 1,000 mls Insulin Human Lispro (Humalog) 0 units SC .MILD SLIDING SCALE PRN; Protocol PRN Reason: MILD SLIDING SCALE Last Admin: 02/04/18 21:19 Dose: 6 unit Insulin Human Lispro (Humalog) 0 units SC .BEDTIME SLIDING SC PRN PRN Reason: Bedtime Correctional Scale Lorazepam (Ativan) 2 mg SLOW IVP Q1H PRN PRN Reason: Breakthrough agitation Stop: 03/05/18 07:13 Miscellaneous Medication (Pharmacy To Dose) 1 each IVPB PRN PRN PRN Reason: Pharmacy to dose Morphine Sulfate (Morphine Sulfate) 2 mg SLOW IVP Q1H PRN PRN Reason: BREAKTHROUGH PAIN/AGITATION Stop: 03/05/18 07:13 Propofol (Diprivan) 1,000 mg IV INF PRN; Protocol PRN Reason: TO ACHIEVE GOAL RASS Stop: 03/05/18 07:13 Propofol (Diprivan Bolus) 20 mg IV Q5MIN PRN PRN Reason: BREAKTHROUGH AGITATION Stop: 03/05/18 07:13 Saccharomyces Boulardii (Florastor) 250 mg PO DAILY [facility] Last Admin: 02/04/18 10:17 Dose: 250 mg Simethicone (Mylicon Chewable) 80 mg PO PCHS PRN PRN Reason: Gas Pain Sodium Biphosphate/Sodium Phosphate (Fleet Enema) 133 ml FL DAILY PRN PRN Reason: Constipation Sodium Chloride (Flush - Normal Saline) 10 ml IVF PRN PRN PRN Reason: Saline Flush
[2018-02-05] MEDS: HumaLOG 300 UNITS/3 ML VIAL SC PRN ×3 (00:30→12:09)
[2018-02-05] MEDS: Dextrose 5 %-0.45 % NaCl 1,000 ML IV SCH ×3 (03:00→19:20)
[2018-02-05] MEDS: Hydrocortisone Sod Succ/PF 100 mg/2 ml Vial IVP SCH ×3 (04:00→19:27)
[2018-02-05] MEDS: Albumin 25% 25 GM/100 ML BOT IVPB SCH ×2 (05:03→12:09)
[2018-02-05] MEDS: Piperacillin/Tazobactam 2.25 GM in Sodium Chloride 0.9% 100 ML IVPB SCH ×2 (05:04→12:11)
[2018-02-05 05:39] LABS: Lactic Acid 1.9 mmol/L (0.5-2.2)
[2018-02-05 05:46] LABS: Band 18 % (5-11); Hemoglobin 6.6 g/dL (12.0-16.0); Lymphocytes 4 % (21-51); MDiff Complete? YES; Mean Corpuscular HGB CONC 32.2 g/dL (32.0-36.0); Mean Corpuscular Hemoglobin 32.3 pg (27.0-31.0); Mean Platelet Volume 8.6 fL (7.4-10.4); Monocytes 1 % (0-10); Neutrophil 77 % (42-75); Platelet Count 124 thou/uL (130-400); RBC Distribution Width 15.1 % (11.5-14.5); Red Blood Cell (RBC) Count 2.04 mill/uL (4.20-5.40); White Blood Cell (WBC) Count 24.3 thou/uL (4.8-10.8)
[2018-02-05 05:58] LABS: Anion Gap 11 mmol/L (10-20); BUN (Urea Nitrogen) 51 mg/dL (9.8-20.1); Calc. Creatinine Clearance 18 mL/min (70-130); Calcium 7.6 mg/dL (7.8-10.44); Carbon Dioxide 18 mmol/L (23-31); Chloride 104 mmol/L (98-107); Estimated GFR-MDRD 25; Glucose 324 mg/dL (83-110); Magnesium 2.2 mg/dL (1.6-2.6); Phosphorus 3.7 mg/dL (2.3-4.7); Potassium 3.4 mmol/L (3.5-5.1); Sodium 130 mmol/L (136-145)
--- NOTE | 2018-02-05 07:09 | PRG ---
DATE OF SERVICE: 02/05/2018 Ms. Gonzalez was seen in her ICU room this morning. She remains intubated. She is still on vasoactive d rips. She is now on fentanyl pump. I do not see any fevers recorded. Her blood pressures have been in the 120s to low 150s. Other vital signs have been stable. On examination, Ms. Gonzalez opens her ey es to my voice. She squeezes both hands and wiggles her toes. Her abdomen is tense and tender. Lab oratory studies show hemoglobin of 6.6 and white blood cell count of 24.3. I would like Ms. Gonzalez to have 2 units of packed red blood cells and I am going to defer to the critic al care team. She might need a little diuresis after. Her abdomen is a little less distended than i t was yesterday, but it still feels firm and it appears tender. Both Gastroenterology and General Edmondson dunia has seen her during this hospitalization. We will defer to their expertise. Our Neurosurgery team will continue to follow her and her incision continues to improve.
[2018-02-05 07:54] LABS: Actual Bicarbonate (HCO3a) 16.3 mEq/L (22-28); Base Excess (BEa) -10.1 mEq/L (-2.0 to +3.0); CO2 Tension 38.3 mmHg (35.0-45.0); Hemoglobin (Hb) 6.9 g/dL (12.0-16.0); O2 Tension (PaO2) 76.5 mmHg (> 60.0); pH, Arterial 7.25 (7.35-7.45)
[2018-02-05 07:55] LABS: Puncture Site RRA
[2018-02-05 07:56] LABS: ALV-art Gradient 232.125 (0-20)
[2018-02-05] MEDS: Saccharomyces boulardii 250 MG CAP PO SCH (08:33)
--- NOTE | 2018-02-05 09:38 | RAD ---
PORTABLE AP CHEST XRAY: DATE: 02/05/18. HISTORY: On ventilator. Followup evaluation. COMPARISON: 02/04/18. FINDINGS: Endotracheal tube, nasogastric tube, and right internal jugular vein central venous catheters remain in place and unchanged in position. Cardiac silhouette is magnified by projection but is enlarged. Pulmonary vasculature is again increased. There are increased interstitial and alveolar opacities wi thin the lungs bilaterally much greater in the right upper and mid lung zones. There is a probable s mall left pleural effusion present. Dense vascular calcifications are seen in the thoracic aorta. T here is increased density overlying the left upper quadrant. This was not seen on the prior study in cluding a study on 02/02/18 of which image of this region may be related to ingested material. A dual -lead left subclavian cardiac pacemaking device remains stable in position. IMPRESSION: 1. Lines and tubes stable in position. 2. Increased interstitial and alveolar opacities within the lungs bilaterally with greater opacity n ow present in the right upper lung zone. Findings may be related to asymmetric pulmonary edema, but infectious process is a possibility. 3. Small left pleural effusion. 4. Cardiomegaly and pulmonary vascular congestion. POS: C
[2018-02-05] MEDS ORDERED: Dextrose 5% in Water 1,000 ML IV PRN (12:15)
[2018-02-05] MEDS ORDERED: Dextrose 50% Abboject 50 ML SYRINGE SLOW IVP PRN (12:15)
--- NOTE | 2018-02-05 13:08 | ULT ---
RENAL ULTRASOUND: HISTORY: Acute renal failure. FINDINGS: Real-time imaging of the right and left kidneys was performed. The right kidney measures 10.9 and th e left kidney 9.1 cm in size. Both kidneys appear to be of increased echogenicity. There is a hypoe choic area measuring 1.9 x 2 cm in size involving the right kidney and a 2.6 cm hypoechoic area invol ving the left kidney. These are not definitively cysts by ultrasound criteria, although this would s till be the most likely diagnosis given the multiple nature and similar appearance. No obstruction n oted. Husain catheter is present in the bladder. There is some ascites seen. IMPRESSION: 1. Increased echogenicity to both kidneys suggesting underlying medical renal parenchymal disease. No obstruction. 2. Hypoechoic areas involving the right and left kidneys, probably cysts but do not definitely fulfi ll ultrasound criteria for cyst. Review of CT examination done 02/02/18 would suggest that thee are m ost likely cysts. POS: ALDEN
--- NOTE | 2018-02-05 13:47 | PDOC.PN ---
- Subjective Encounter Start Date: 02/05/18 Encounter Start Time: 13:00 Patient remains intubated with Respiratory failure. - Objective MAR Reviewed: Yes Vital Signs & Weight: Vital Signs (12 hours) Temp Pulse Resp BP Pulse Ox 02/05/18 10:47 70 108/57 L 02/05/18 10:45 73 13 97 02/05/18 08:00 98.5 F 78 13 97 02/05/18 06:44 78 144/70 H 02/05/18 06:41 79 13 97 02/05/18 06:00 14 02/05/18 04:00 97.9 F 14 02/05/18 02:46 76 149/66 H 02/05/18 02:00 13 Weight Admit Weight 128 lb 6.391 oz Weight 138 lb 10.732 oz Most Recent Monitor Data Heart Rate from ECG 74 NIBP 98/45 NIBP BP-Mean 54 Respiration from ECG 13 SpO2 95 I&O: 02/04/18 02/05/18 02/06/18 06:59 06:59 06:59 Intake Total 3910 4835 0 Output Total 701 963 100 Balance 3209 3872 -100 Result Diagrams: 02/05/18 05:21 02/05/18 05:21 Additional Labs: Accuchecks 02/05/18 02/04/18 02/04/18 00:26 21:19 16:37 POC Glucose 360 H 376 H 243 H Radiology Reviewed by me: Yes EKG Reviewed by me: Yes Phys Exam - Physical Examination Neck: no nodes, no JVD Respiratory: wheezing present Cardiovascular: RRR, no significant murmur Gastrointestinal: soft, non-tender Skin: no rash, normal turgor Dx/Plan (1) Acute respiratory failure Code(s): J96.00 - ACUTE RESPIRATORY FAILURE, UNSP W HYPOXIA OR HYPERCAPNIA Status: Acute Comment: PT is managed on Vent, pulmoanry following, Continue to monitor, with IV Abx, Nebs and Iv Steroids. (2) Acute CHF Code(s): I50.9 - HEART FAILURE, UNSPECIFIED Status: Acute Comment: Will closley monitor, Echo pending, elevated BNP. Pulmoanry Eema on Xray. (3) Hyperglycemia due to type 2 diabetes mellitus Code(s): E11.65 - TYPE 2 DIABETES MELLITUS WITH HYPERGLYCEMIA Status: Acute Comment: Worsieng BG from Steroide use, will increase Moderate Intensity SSI on Lantus 20 untis, monior slowly as pt is NPo. (4) Secondary adrenal insufficiency Code(s): E27.49 - OTHER ADRENOCORTICAL INSUFFICIENCY Status: Acute Comment: Pt is on IV steroids by Critical care, will clsoley monitor. (5) Septic shock Code(s): A41.9 - SEPSIS, UNSPECIFIED ORGANISM; R65.21 - SEVERE SEPSIS WITH SEPTIC SHOCK Status: Acute Comment: Sepsis rom Aspirantion pneumonia, repeat Chest xray showed Right upper lbe opacity. (6) NSTEMI (non-ST elevated myocardial infarction) Code(s): I21.4 - NON-ST ELEVATION (NSTEMI) MYOCARDIAL INFARCTION Status: Acute Comment: Pt is on Aspirin rectally,BB, Statin. Coreg is not started due t septic shock. (7) Anemia Code(s): D64.9 - ANEMIA, UNSPECIFIED Status: Acute Comment: plan to Replace with 2 untis PRBC, source not known. Will Monitor Closley. look for GI source of bleeding. (8) YOVANA (acute kidney injury) Code(s): N17.9 - ACUTE KIDNEY FAILURE, UNSPECIFIED Status: Acute Comment: Will gailley Monitor, Consulted nephrology, Likely from Worseing Sepsis, thiord spacing. Avoid nephrotoxics, - Plan cont current plan of care, continue antibiotics, psychotherapist social worker, DVT proph w/ lovenox * . Review of Systems - Review of Systems Other: Pt is non verbal from intubation - Medications/Allergies Allergies/Adverse Reactions: Allergies Allergy/AdvReac Type Severity Reaction Status Date / Time ibuprofen [From Motrin] AdvReac Mild Nausea Verified 01/20/18 12:18 Medications: Current Medications Acetaminophen (Tylenol) 650 mg WV Q4H PRN PRN Reason: Headache/Fever or Pain Last Admin: 02/03/18 05:12 Dose: 650 mg Albuterol/Ipratropium (Duoneb) 3 ml NEB Q4H PRN PRN Reason: SOB &/or Wheezing Albuterol/Ipratropium (Duoneb) 3 ml NEB [id number] MONIQUE Last Admin: 02/05/18 10:45 Dose: 3 ml Dextrose/Water (Dextrose 50%) 25 gm SLOW IVP PRN PRN PRN Reason: Hypoglycemia Famotidine (Pepcid) 20 mg SLOW IVP QPM [facility] Last Admin: 02/04/18 21:09 Dose: 20 mg Glucagon (Glucagon) 1 mg IM PRN PRN PRN Reason: Hypoglycemia Hydralazine HCl (Apresoline) 10 mg SLOW IVP Q4H PRN PRN Reason: SBP Greater Than 180 Hydrocortisone Sodium Succinate (Solu-Cortef) 50 mg IVP 0300,0900,1500,2100 [facility] Last Admin: 02/05/18 08:33 Dose: 50 mg Piperacillin Sod/Tazobactam (Sod 2.25 gm/ Sodium Chloride) 100 mls @ 200 mls/ hr IVPB Q6HR [facility] Last Admin: 02/05/18 12:11 Dose: 100 mls Vasopressin 40 unit/Miscellaneous Medication 1 each/ Sodium Chloride 102 mls @ 0 mls/hr IV INF MONIQUE; As Directed PRN Reason: Protocol Last Admin: 02/03/18 12:00 Dose: 102 mls Norepinephrine Bitartrate 16 (mg/ Dextrose/Water) 266 mls @ 0 mls/hr IVPB PRN PRN; Protocol; Titrate PRN Reason: To maintain MAP > 65 Last Admin: 02/04/18 23:55 Dose: 266 mls Fentanyl Citrate 2,000 mcg/ (Sodium Chloride) 100 mls @ 0 mls/hr IV INF MONIQUE; Per Protocol PRN Reason: Protocol Stop: 03/05/18 07:13 Last Admin: 02/03/18 07:29 Dose: 100 mls Dextrose/Sodium Chloride (D5 1/2 Ns) 1,000 mls @ 175 mls/hr IV .Q5H43M [facility] Last Admin: 02/05/18 08:34 Dose: 1,000 mls Dextrose/Water (D5w) 1,000 mls @ 0 mls/hr IV .Q0M PRN; As Directed PRN Reason: Hypoglycemia Insulin Glargine 20 units/ (Miscellaneous Medication) 0.2 mls @ 0 mls/hr SC HS [facility] Insulin Human Lispro (Humalog) 0 units SC .BEDTIME SLIDING SC PRN PRN Reason: Bedtime Correctional Scale Lorazepam (Ativan) 2 mg SLOW IVP Q1H PRN PRN Reason: Breakthrough agitation Stop: 03/05/18 07:13 Miscellaneous Medication (Pharmacy To Dose) 1 each IVPB PRN PRN PRN Reason: Pharmacy to dose Morphine Sulfate (Morphine Sulfate) 2 mg SLOW IVP Q1H PRN PRN Reason: BREAKTHROUGH PAIN/AGITATION Stop: 03/05/18 07:13 Propofol (Diprivan) 1,000 mg IV INF PRN; Protocol PRN Reason: TO ACHIEVE GOAL RASS Stop: 03/05/18 07:13 Propofol (Diprivan Bolus) 20 mg IV Q5MIN PRN PRN Reason: BREAKTHROUGH AGITATION Stop: 03/05/18 07:13 Saccharomyces Boulardii (Florastor) 250 mg PO DAILY MONIQUE Last Admin: 02/05/18 08:33 Dose: 250 mg Simethicone (Mylicon Chewable) 80 mg PO PCHS PRN PRN Reason: Gas Pain Sodium Biphosphate/Sodium Phosphate (Fleet Enema) 133 ml WV DAILY PRN PRN Reason: Constipation Sodium Chloride (Flush - Normal Saline) 10 ml IVF PRN PRN PRN Reason: Saline Flush
[2018-02-05] MEDS ORDERED: Dextrose 5 %-0.45 % NaCl 1,000 ML IV SCH (15:25)
[2018-02-05] MEDS ORDERED: Morphine 4 MG/ML VIAL ONE (15:50)
[2018-02-05] MEDS: Morphine 4 MG/ML VIAL SLOW IVP PRN ×3 (16:10→19:12)
--- NOTE | 2018-02-05 17:01 | PRG ---
DATE OF SERVICE: 02/05/2018 SUBJECTIVE: Ms. Gonzalez had a small bowel series yesterday was suggestive of a high grade small-bowel obstruction Dr. Mejia tentatively planned exploration today, but the family has declined. They want support withdrawn I am told OBJECTIVE: VITAL SIGNS: Heart rate 78, blood pressure 125/63, respiratory rate 13, oximetry is 98. LUNGS: Clear anteriorly. CARDIOVASCULAR: Regular rhythm. ABDOMEN: Soft. EXTREMITIES: With asymmetry or edema. LABORATORY DATA: White count 24.3, hemoglobin 6.6, platelets 224,000. Packed cells were ordered this morning, anticipating surgery. Sodium 130, potassium 3.4, chloride 104, bicarbonate 18, BUN 51, creatinine 2.25. pH 7.25, CO2 38, pO2 76. IMPRESSION: Respiratory failure associated with a massive aspiration associated with small-bowel obstruction that is high grade, family has declined surgery and wants supportive care and comfort measures. I presented to the Critical Care Unit several times today hoping to meet family, but they have not been here. Palliative care has been consulted. When the family gets together with the power of healthcare and if everyone agrees, support can certainly been be withdrawn and we can proceed with comfort measures only. I would not anticipate that she would survive very long without mechanical ventilatory support. Critical care time was 30 minutes. KRISTEN
[2018-02-05] MEDS: Lorazepam 2 MG/ML VIAL SLOW IVP PRN ×2 (17:18→21:15)
--- NOTE | 2018-02-05 17:36 | PRG ---
DATE OF SERVICE: 02/05/2018 SUBJECTIVE: I have visited Ms. Gonzalez, an 83-year-old woman who is status post lumbar laminectomy. Deejay karolbelen developed acute small-bowel obstruction complicated by acute pulmonary aspiration. Small bowel follow through yesterday revealed a high grade small-bowel obstruction. I discuss with the patient' s power of concrete bucket hooker, granddaughter today night presented options to include an exploratory laparotomy with indicated procedures including possible bowel resection. I did inform her that there is a pena ce that grandmother may not survive the surgery or better yet survive without any additional complica tions postoperatively. Alternatively, comfort care measures could be pursued which will certainly le ad to the patient's demise. Patient's granddaughter had discussed with patient's mother and they bot h came to the conclusion that comfort care measures will be best pursued on behalf of this patient at this time. Therefore, declining surgery. They do so knowing that comfort care measures which inclu darinel a terminal wean, would certainly lead to this patient's . I offered them an opportunity to reevaluate the patient at any time on demand.
[2018-02-05 19:45] VITALS: BP 73/47; TEMP 94.6
[2018-02-05] MEDS ORDERED: Insulin Glargine 20 UNITS in Pre-Filled Syringe 1 EACH SC SCH (21:00)
--- NOTE | 2018-02-06 15:10 | DS ---
DATE OF ADMISSION: 01/24/2018 Patient on 02/05/2018 CHIEF COMPLAINT: Lumbar spondylosis with lumbar stenosis. The patient was brought in for a lumbar laminectomy L2 through L5 with TLIF L3- L5 Surgery was successful on 01/23/2018 and patient was admitted by Dr. Triana. The patient was slow to mobilize. We consulted PT and OT and the patient began to show effort for mobilization. We wanted to get the patient into rehabilitation. On 01/30/18, consulted Hospitalist for shortness of breath. Following that on 02/02/2018, consults for her pulmonary, GI and General Surgery were done. General surgery placed an endotracheal intubation. GI spoke with patient's family about doing a bowel resection for her bowel obstruction; however, patient's family chose comfort measures and denied surgery.On 02/05/2018, patient due to respiratory failure, bowel obstruction and acute aspiration pneumonia. KRISTEN
--- NOTE | 2018-02-09 13:55 | EKG ---
Test Reason : Blood Pressure : / mmHG Vent. Rate : 083 BPM Atrial Rate : 083 BPM P-R Int : 144 ms QRS Dur : 174 ms QT Int : 458 ms P-R-T Axes : 061 -74 099 degrees QTc Int : 538 ms Atrial-sensed ventricular-paced rhythm with intrinsic complexes Abnormal ECG When compared with ECG of 20-JAN-2018 12:29, Vent. rate has increased BY 17 BPM Confirmed by AMARJIT ESCALERA (2) on 02/09/2018 1:54:56 PM Referred By: JLUIS Confirmed By:AMARJIT ESCALERA
--- NOTE | 2018-02-17 11:38 | PQF ---
KAREN DARLING L GERARD MD [id number] [facility] A- [id number] CLINICAL DOCUMENTATION CLARIFICATION FORM: POST DISCHARGE Addendum to original discharge summary date: ____ Late entry note date: __ DATE: 02/17/18 ATTN: Dr. Triana Please exercise your independent, professional judgment in responding to the clarification form. Clinical indicators are provided on the bottom of this form for your review Please check appropriate box(s): In the description of the operative procedure a ___durotomy __ was noted by the surgeon. If possible would you please further clarify if this was: [ ] Incidental occurrence inherent in the surgical procedure [ ] Complication of the procedure [ ] Other [ ] Unable to determine For continuity of documentation, please document condition throughout progress notes and discharge summary. Thank You. CLINICAL INDICATORS - SIGNS / SYMPTOMS / LABS OP Report: Decompression laminectomy w/fusion--01/24/18-- second page 1st paragraph states--"during our decompression at the L3 level, there is a tiny durotomy in the midlilne posteriorly under a bone spur and another small one laterally.". RISK FACTORS TREATMENTS: Durotomy was treated with sutures using operative microscope and DuraSeal tissue sealant (This form is maintained as a part of the permanent medical record) 2014 [employer] All Rights Reserved Adia [email or web address] [phone] MTDD
== END 2018-02-05 21:47 | disposition expired | DRG 453 ==
LOC: SURG A 01-24 06:00 → 2NO 01-30 18:50 → CCU 02-02 10:18 → T4-B 02-05 18:48
PROVIDERS: ADMIT Neurological Surgery; ATTEND Neurological Surgery
PROC: 0SG10A0 Fusion of 2 or more Lumbar Vertebral Joints with Interbody Fusion Device, Anterior Approach, Anterior Column, Open Approach (ICD-10-PCS; principal; 2018-01-24)
PROC: 0SG1071 Fusion of 2 or more Lumbar Vertebral Joints with Autologous Tissue Substitute, Posterior Approach, Posterior Column, Open Approach (ICD-10-PCS; 2018-01-24)
PROC: 01NB0ZZ Release Lumbar Nerve, Open Approach (ICD-10-PCS; 2018-01-24)
PROC: 0ST20ZZ Resection of Lumbar Vertebral Disc, Open Approach (ICD-10-PCS; 2018-01-24)
PROC: 00QT0ZZ Repair Spinal Meninges, Open Approach (ICD-10-PCS; 2018-01-24)
PROC: 30253N1 (ICD-10-PCS; 2018-01-24)
PROC: 0B9M8ZX Drainage of Bilateral Lungs, Via Natural or Artificial Opening Endoscopic, Diagnostic (ICD-10-PCS; 2018-02-02)
PROC: 05H533Z Insertion of Infusion Device into Right Subclavian Vein, Percutaneous Approach (ICD-10-PCS; 2018-02-02)
PROC: B546ZZA Ultrasonography of Right Subclavian Vein, Guidance (ICD-10-PCS; 2018-02-02)
PROC: 0BB58ZX Excision of Right Middle Lobe Bronchus, Via Natural or Artificial Opening Endoscopic, Diagnostic (ICD-10-PCS; 2018-02-02)
PROC: 0BH17EZ Insertion of Endotracheal Airway into Trachea, Via Natural or Artificial Opening (ICD-10-PCS; 2018-02-02)
PROC: 5A1945Z Respiratory Ventilation, 24-96 Consecutive Hours (ICD-10-PCS; 2018-02-02)
DX: M43.16 Spondylolisthesis, lumbar region (principal); J69.0 Pneumonitis due to inhalation of food and vomit; J96.01 Acute respiratory failure with hypoxia; A41.9 Sepsis, unspecified organism; R65.21 Severe sepsis with septic shock; I21.4 Non-ST elevation (NSTEMI) myocardial infarction; I50.43 Acute on chronic combined systolic (congestive) and diastolic (congestive) heart failure; G92 Toxic encephalopathy; D62 Acute posthemorrhagic anemia; K56.609 Unspecified intestinal obstruction, unspecified as to partial versus complete obstruction; I42.9 Cardiomyopathy, unspecified; J91.8 Pleural effusion in other conditions classified elsewhere; N17.9 Acute kidney failure, unspecified; E87.2 Acidosis; I13.0 Hypertensive heart and chronic kidney disease with heart failure and stage 1 through stage 4 chronic kidney disease, or unspecified chronic kidney disease; M48.062 Spinal stenosis, lumbar region with neurogenic claudication; E11.22 Type 2 diabetes mellitus with diabetic chronic kidney disease; N18.3 Chronic kidney disease, stage 3 (moderate); E11.42 Type 2 diabetes mellitus with diabetic polyneuropathy; E78.5 Hyperlipidemia, unspecified; F17.210 Nicotine dependence, cigarettes, uncomplicated; I46.9 Cardiac arrest, cause unspecified; I25.10 Atherosclerotic heart disease of native coronary artery without angina pectoris; M85.80 Other specified disorders of bone density and structure, unspecified site; E11.65 Type 2 diabetes mellitus with hyperglycemia; E27.9 Disorder of adrenal gland, unspecified; Z98.62 Peripheral vascular angioplasty status; Z79.4 Long term (current) use of insulin; Z95.1 Presence of aortocoronary bypass graft; Z95.810 Presence of automatic (implantable) cardiac defibrillator; Z86.718 Personal history of other venous thrombosis and embolism
CPT/HCPCS: 36415; 36416; 36430; 70450; 71045; 71250; 74018; 74177; 74250; 76001; 76770; 80048; 80053; 80076; 81001; 82140; 82607; 82746; 82805; 83605; 83690; 83735; 83880; 84100; 84443; 84484; 85007; 85025; 85027; 86850; 86900; 86901; 87070; 87077; 87086; 87186; 88112; 88305; 93005; 93010; 93970; 94002; 94003; 94640; 96374; A4216; C1713; C1768; G8978-GP-CN; G8979-GP-CK; G8981-GP-CL; G8982-GP-CJ; G8987-GO-CK; G8988-GO-CI; G8988-GO-CJ; G8996-GN-CH; G8997-GN-CH; G8998-GN-CH; J0131; J0171; J0360; J0670; J0692; J1720; J1940; J2001; J2060; J2270; J2370; J2543; J2550; J2704; J3010; J3370; J3475; J3490; J7050; J7070; J7620; L0639; P9016; P9045; P9047; S0028

== ENCOUNTER 2018-01-20 11:42 | Outpatient (CLI) | payer MEDICARE ==
[2018-01-20 13:41] LABS: Hemoglobin 11.4 g/dL (12.0-16.0); Mean Corpuscular HGB CONC 33.3 g/dL (32.0-36.0); Mean Corpuscular Hemoglobin 33.6 pg (27.0-31.0); Mean Platelet Volume 9.5 fL (7.4-10.4); Platelet Count 132 thou/uL (130-400); RBC Distribution Width 13.4 % (11.5-14.5); Red Blood Cell (RBC) Count 3.39 mill/uL (4.20-5.40); White Blood Cell (WBC) Count 6.5 thou/uL (4.8-10.8)
[2018-01-20 13:58] LABS: INR-International Normal Ratio 1.1; Prothrombin Time 13.8 SEC (12.0-14.7)
[2018-01-20 14:02] LABS: PTT 31.7 SEC (22.9-36.1)
[2018-01-20 14:07] LABS: Anion Gap 12 mmol/L (10-20); BUN (Urea Nitrogen) 10 mg/dL (9.8-20.1); Calc. Creatinine Clearance 0 mL/min (70-130); Calcium 9.8 mg/dL (7.8-10.44); Carbon Dioxide 26 mmol/L (23-31); Chloride 106 mmol/L (98-107); Estimated GFR-MDRD 71; Glucose 100 mg/dL (83-110); Potassium 3.8 mmol/L (3.5-5.1); Sodium 140 mmol/L (136-145)
--- NOTE | 2018-01-21 12:46 | EKG ---
Test Reason : Blood Pressure : / mmHG Vent. Rate : 066 BPM Atrial Rate : 066 BPM P-R Int : 140 ms QRS Dur : 186 ms QT Int : 480 ms P-R-T Axes : 000 -82 106 degrees QTc Int : 503 ms AV sequential or dual chamber electronic pacemaker When compared with ECG of 04-FEB-2017 14:43, (Unconfirmed) Vent. rate has increased BY 4 BPM Confirmed by EDGAR PRADHAN ([id number]) on 01/21/2018 12:45:48 PM Referred By: MUKESH Confirmed By:EDGAR PRADHAN
== END 2018-01-20 11:43 | disposition home or self-care (01) ==
LOC: LABBT 11:42
PROVIDERS: ATTEND Neurological Surgery
DX: Z01.812 Encounter for preprocedural laboratory examination (principal); M43.16 Spondylolisthesis, lumbar region; M48.061 Spinal stenosis, lumbar region without neurogenic claudication
CPT/HCPCS: 80048; 85027; 85610; 85730; 93005; 93010